=== PATIENT | female | born 1970 | race Caucasian/White ===

== ENCOUNTER 2017-03-14 21:27 | Emergency (ER) | payer MEDICARE, MEDICAID ==
[~2017-03-14] VITALS: Ht 177.8 cm; Wt 95.3 kg
[~2017-03-14 21:27] MED LIST: BACL20TA PO; BUPR150T27 PO; CLIN300C53 PO; ESTR1TAB19 PO; FENT1PAT7 TOP; FLUT16SP2 BOTHNARES; GABA600T2 PO; GABA800T2 PO; HYDR-3972 PO; LEVO750T21 PO; LORA10TA7 PO; LURA120T PO; MULT-342 PO; OMEP20CA10 PO; SERT100T10 PO; SPIR100T PO
[2017-03-14 21:55] LABS: CLARITY,URINE Clear (Clear); COLOR,URINE Yellow (Yellow); GLUCOSE, URINE Negative (Neg); KETONES,URINE Negative (Neg); LEUKOCYTE ESTERASE ,URINE Trace (Neg); NITRITES, URINE Negative (Neg); OCCULT BLOOD,URINE Small (Neg); PH,URINE 5.5 (4.8-8.0); PROTEIN,URINE Negative (Neg); UROBILINOGEN,URINE 0.2 E.U/dL (0.2-1.0)
[2017-03-14 22:03] LABS: URINE HCG NEGATIVE (NEG)
[2017-03-14 22:06] LABS: URINE AMPHETAMINE SCREEN NEGATIVE (Neg); URINE BARBITUATE SCREEN NEGATIVE (Neg); URINE BENZODIAZEPINES SCREEN NEGATIVE (Neg); URINE CANNABINOID SCREEN NEGATIVE (Neg); URINE COCAINE SCREEN NEGATIVE (Neg); URINE METHADONE SCREEN NEGATIVE (Neg); URINE OPIATE SCREEN NEGATIVE (Neg); URINE PHENCYCLIDINE SCREEN NEGATIVE (Neg)
[2017-03-14 22:07] LABS: UA COLLECTION TYPE CLN CATCH MIDSTREAM
[2017-03-14 22:14] LABS: BASOPHILS % (AUTO) 0.5 % (0-1); EOSINOPHILS # (AUTO) 0.2 X10'3 (0-0.9); EOSINOPHILS % (AUTO) 3.2 % (0-6); HEMATOCRIT 33.4 % (35.0-45.0); HEMOGLOBIN 11.4 g/dl (12.0-16.0); LYMPHOCYTES # (AUTO) 0.9 X10'3 (1.1-4.8); MEAN CORPUSCULAR HEMOGLOBIN 30.5 PG (27.0-31.0); MEAN CORPUSCULAR VOLUME 89.8 FL (78-98); MEAN PLATELET VOLUME 8.5 FL (7.4-10.4); MONOCYTES # (AUTO) 0.3 X10'3 (0-0.9); MONOCYTES % (AUTO) 5.1 % (2-12); NEUTROPHILS # (AUTO) 4.7 X10'3 (1.8-7.7); NEUTROPHILS % (AUTO) 76.2 % (42-75); PLATELET COUNT 167 X10'3 (140-440); RED BLOOD COUNT 3.72 X10'6 (4.20-5.60); RED CELL DISTRIBUTION WIDTH 13.6 % (11.5-14.5); WHITE BLOOD COUNT 6.2 X10'3 (4.5-11.0)
[2017-03-14 22:21] LABS: WBC,URINE 0-4 /HPF (0-4)
[2017-03-14 22:22] LABS: BACTERIA,URINE NONE SEEN /HPF (Neg); MUCUS STRANDS NONE SEEN /LPF (Neg); SQUAMOUS EPITHELIAL CELL,UR FEW /LPF (FEW)
[2017-03-14 22:28] LABS: ALANINE AMINOTRANSFERASE 23 U/L (12-78); ALBUMIN 3.7 G/DL (3.4-5.0); ALBUMIN/GLOBULIN RATIO 1.1 (1.1-1.5); ALKALINE PHOSPHATASE 52 IU/L (46-116); ANION GAP 13 (8-16); ASPARTATE AMINO TRANSFERASE 11 U/L (10-37); BILIRUBIN,TOTAL 0.2 MG/DL (0.1-1.0); BLOOD UREA NITROGEN 15 MG/DL (7-18); BUN/CREATININE RATIO 10.4 (6.6-38.0); CALCIUM 8.6 MG/DL (8.5-10.1); CHLORIDE 108 MMOL/L (99-107); CREATININE 1.44 MG/DL (0.40-0.90); GLUCOSE 170 MG/DL (70-104); POTASSIUM 3.7 MMOL/L (3.5-5.1); SODIUM 143 MMOL/L (135-145); TOTAL CARBON DIOXIDE 22.4 MMOL/L (24-32); TOTAL PROTEIN 7.2 G/DL (6.4-8.2); eGFR 39 ML/MIN
[2017-03-14 22:36] LABS: ETHANOL < 0.010 GM/DL (0.0-0.010)
[2017-03-14] MEDS ORDERED: MULT-38 PO (23:38)
[2017-03-14] MEDS ORDERED: BACL20TA PO (23:38)
[2017-03-14] MEDS ORDERED: LORA10TA7 PO (23:38)
[2017-03-14] MEDS ORDERED: SERT25TA PO (23:38)
[2017-03-14] MEDS ORDERED: IBUP-1984 PO (23:38)
[2017-03-14] MEDS ORDERED: ONDA8TAB6 PO (23:38)
[2017-03-14] MEDS ORDERED: METO-467 PO (23:38)
[2017-03-14] MEDS ORDERED: BENZ0.5T3 PO (23:38)
[2017-03-14] MEDS ORDERED: GABA600T2 PO (23:38)
[2017-03-14] MEDS ORDERED: EST1T PO (23:38)
[2017-03-14] MEDS ORDERED: LURA120T PO (23:38)
[2017-03-14] MEDS ORDERED: HYDR-565 PO (23:38)
[2017-03-14] MEDS ORDERED: LURA20TA PO (23:38)
[2017-03-14] MEDS ORDERED: GABA800T2 PO (23:38)
[2017-03-15 01:02] VITALS: BP 142/97
== END 2017-03-15 00:25 | disposition home or self-care (01) ==
LOC: ER 21:29
DX: R45.851 Suicidal ideations (principal); N28.9 Disorder of kidney and ureter, unspecified; D64.9 Anemia, unspecified; I10 Essential (primary) hypertension; G89.29 Other chronic pain; I49.9 Cardiac arrhythmia, unspecified; F20.9 Schizophrenia, unspecified; F41.9 Anxiety disorder, unspecified; F31.9 Bipolar disorder, unspecified; Z86.711 Personal history of pulmonary embolism; Z87.442 Personal history of urinary calculi; Z59.0 Homelessness; Z79.899 Other long term (current) drug therapy; Z88.2 Allergy status to sulfonamides; Z88.0 Allergy status to penicillin; Z88.8 Allergy status to other drugs, medicaments and biological substances; Z88.5 Allergy status to narcotic agent
CPT/HCPCS: 36415; 80053; 80305; 80320; 81001; 81025; 84443; 85025; 99284

== ENCOUNTER 2017-03-14 23:10 | Inpatient (IN) | payer MEDICARE, MEDICAID ==
[~2017-03-14] VITALS: Ht 177.8 cm; Wt 94.0 kg
[2017-03-14] MEDS ORDERED: IBUP-1984 PO (23:38)
[2017-03-14] MEDS ORDERED: BENZ0.5T3 PO (23:38)
[2017-03-14] MEDS ORDERED: ONDA8TAB6 PO (23:38)
[2017-03-14] MEDS ORDERED: LURA120T PO (23:38)
[2017-03-14] MEDS ORDERED: MULT-38 PO (23:38)
[2017-03-14] MEDS ORDERED: METO-467 PO (23:38)
[2017-03-14] MEDS ORDERED: GABA600T2 PO (23:38)
[2017-03-14] MEDS ORDERED: LORA10TA7 PO (23:38)
[2017-03-14] MEDS ORDERED: HYDR-565 PO (23:38)
[2017-03-14] MEDS ORDERED: BACL20TA PO (23:38)
[2017-03-14] MEDS ORDERED: EST1T PO (23:38)
[2017-03-14] MEDS ORDERED: SERT25TA PO (23:38)
[2017-03-14] MEDS ORDERED: LURA20TA PO (23:38)
[2017-03-14] MEDS ORDERED: GABA800T2 PO (23:38)
[2017-03-15] MEDS ORDERED: magnesium hydroxide 30ml (MOM) UD suspension PO PRN (00:25)
[2017-03-15] MEDS ORDERED: mag hydrox/Alum hydrox/simeth 30ml oral suspension PO PRN (00:25)
[2017-03-15 00:51] VITALS: BP 107/78
[2017-03-15] MEDS: acetaminophen 325mg tablet PO PRN ×2 (01:27→08:56)
[2017-03-15] MEDS: baclofen 10mg tablet PO SCH ×4 (02:03→20:29)
[2017-03-15 07:36] VITALS: BP 143/95
[2017-03-15] MEDS ORDERED: FENTANYL 25 MCG TOP SCH (17:10)
[2017-03-15 19:00] VITALS: BP 148/89
[2017-03-15] MEDS: gabapentin 300mg capsule PO SCH ×2 (20:00→20:30)
[2017-03-15] MEDS: HYDROcodone/acetaminophen 10/325mg tab PO SCH (20:29)
[2017-03-15] MEDS: gabapentin 400mg capsule PO SCH (20:30)
[2017-03-15] MEDS: ibuprofen tablet 400 MG TABLET PO SCH (20:30)
[2017-03-15] MEDS: ondansetron 4mg rapidly disintigrating tab PO SCH (20:31)
[2017-03-15] MEDS: sertraline 50mg tablet PO SCH (20:31)
[2017-03-15] MEDS: benztropine 1mg tablet PO SCH (20:32)
[2017-03-15] MEDS: metoprolol tartrate 50mg tablet PO SCH (20:54)
[2017-03-15] MEDS: estradiol 1mg tablet PO SCH (20:55)
[2017-03-15] MEDS: spironolactone 25 MG tablet PO SCH (20:56)
[2017-03-15] MEDS ORDERED: lurasidone 20mg tablet PO SCH (21:00)
[2017-03-15] MEDS ORDERED: lurasidone 60mg tablet PO SCH (21:00)
[2017-03-16] MEDS: baclofen 10mg tablet PO SCH ×4 (02:00→20:32)
[2017-03-16] MEDS: HYDROcodone/acetaminophen 10/325mg tab PO SCH ×7 (04:00→23:54)
[2017-03-16 08:00] VITALS: BP 111/78
[2017-03-16] MEDS: fluticasone nasal spray 16GM bottle NS SCH (08:55)
[2017-03-16] MEDS: spironolactone 25 MG tablet PO SCH ×2 (08:56→20:32)
[2017-03-16] MEDS: loratadine 10mg tablet PO SCH (08:57)
[2017-03-16] MEDS: estradiol 1mg tablet PO SCH ×2 (08:58→20:32)
[2017-03-16] MEDS: metoprolol tartrate 50mg tablet PO SCH ×2 (08:58→20:32)
[2017-03-16] MEDS: gabapentin 300mg capsule PO SCH ×2 (08:59→20:32)
[2017-03-16] MEDS: ibuprofen tablet 400 MG TABLET PO SCH ×3 (08:59→20:33)
[2017-03-16] MEDS: pantoprazole 40mg Tablet.DR PO SCH (09:00)
[2017-03-16] MEDS: multivitamins, therapeutics tablet PO SCH (09:00)
[2017-03-16] MEDS: ondansetron 4mg rapidly disintigrating tab PO SCH ×3 (09:01→20:33)
[2017-03-16] MEDS: buPROPion SR 150mg tablet PO SCH (09:01)
[2017-03-16] MEDS: benztropine 1mg tablet PO SCH (20:33)
[2017-03-16] MEDS: gabapentin 400mg capsule PO SCH (20:33)
[2017-03-16] MEDS: sertraline 50mg tablet PO SCH (20:33)
[2017-03-16 20:49] VITALS: BP 121/82
[2017-03-16] MEDS ORDERED: lurasidone 60mg tablet PO SCH (22:00)
[2017-03-17] MEDS: baclofen 10mg tablet PO SCH (02:00)
[2017-03-17] MEDS: HYDROcodone/acetaminophen 10/325mg tab PO SCH (04:00)
[2017-03-17 08:00] VITALS: BP 120/75
[2017-03-17] MEDS ORDERED: LATUDA PO SCH (08:00)
[2017-03-17] MEDS: loratadine 10mg tablet PO SCH (08:00)
[2017-03-17] MEDS: spironolactone 25 MG tablet PO SCH ×2 (09:50→19:42)
[2017-03-17] MEDS: fluticasone nasal spray 16GM bottle NS SCH (09:50)
[2017-03-17] MEDS: estradiol 1mg tablet PO SCH ×2 (09:51→19:41)
[2017-03-17] MEDS: gabapentin 300mg capsule PO SCH ×2 (09:53→19:41)
[2017-03-17] MEDS: metoprolol tartrate 50mg tablet PO SCH ×2 (09:53→19:41)
[2017-03-17] MEDS: buPROPion SR 150mg tablet PO SCH (09:54)
[2017-03-17] MEDS: fentaNYL 25MCG/hour patch.TD72 TD SCH (09:55)
[2017-03-17] MEDS: baclofen 10mg tablet PO PRN ×2 (09:56→20:59)
[2017-03-17] MEDS: multivitamins, therapeutics tablet PO SCH (10:10)
[2017-03-17] MEDS: pantoprazole 40mg Tablet.DR PO SCH (13:40)
[2017-03-17] MEDS: HYDROcodone/acetaminophen 10/325mg tab PO PRN ×2 (13:42→19:44)
[2017-03-17] MEDS ORDERED: lurasidone 20mg tablet PO SCH (18:00)
[2017-03-17] MEDS ORDERED: lurasidone 60mg tablet PO SCH (18:00)
[2017-03-17 19:20] VITALS: BP 136/76
[2017-03-17] MEDS: gabapentin 400mg capsule PO SCH (20:58)
[2017-03-17] MEDS: sertraline 50mg tablet PO SCH (20:59)
[2017-03-17] MEDS: benztropine 1mg tablet PO SCH (20:59)
[2017-03-17] MEDS: lurasidone 60mg tablet PO SCH (21:04)
[2017-03-17] MEDS: ibuprofen tablet 400 MG TABLET PO PRN (21:07)
[2017-03-18] MEDS: HYDROcodone/acetaminophen 10/325mg tab PO PRN ×4 (01:50→20:50)
[2017-03-18 07:44] VITALS: BP 110/66
[2017-03-18] MEDS: lurasidone 20mg tablet PO SCH (08:00)
[2017-03-18] MEDS: fluticasone nasal spray 16GM bottle NS SCH (08:53)
[2017-03-18] MEDS: spironolactone 25 MG tablet PO SCH ×2 (08:54→20:39)
[2017-03-18] MEDS: buPROPion SR 150mg tablet PO SCH (08:55)
[2017-03-18] MEDS: metoprolol tartrate 50mg tablet PO SCH ×2 (08:55→20:40)
[2017-03-18] MEDS: estradiol 1mg tablet PO SCH ×2 (08:56→20:40)
[2017-03-18] MEDS: gabapentin 300mg capsule PO SCH ×2 (08:57→20:40)
[2017-03-18] MEDS: multivitamins, therapeutics tablet PO SCH (08:57)
[2017-03-18] MEDS: pantoprazole 40mg Tablet.DR PO SCH (08:58)
[2017-03-18] MEDS: loratadine 10mg tablet PO SCH (08:58)
[2017-03-18] MEDS: baclofen 10mg tablet PO PRN ×2 (09:02→20:50)
[2017-03-18 09:13] LABS: CHOL/HDL RATIO 5.4 (0.00-4.99); CHOLESTEROL 145 MG/DL (0-200); HDL CHOLESTEROL 27 MG/DL (35-60); LDL CHOLESTEROL 82 MG/DL (50-100); TRIGLYCERIDES 367 MG/DL (20-135)
[2017-03-18 09:20] LABS: HEMOGLOBIN A1C 5.1 % (4.5-6.2)
[2017-03-18] MEDS ORDERED: traZODone 50mg tablet PO PRN (10:15)
[2017-03-18 19:36] VITALS: BP 109/75
[2017-03-18] MEDS: lurasidone 60mg tablet PO SCH (20:41)
[2017-03-18] MEDS: benztropine 1mg tablet PO SCH (20:41)
[2017-03-18] MEDS: gabapentin 400mg capsule PO SCH (20:41)
[2017-03-18] MEDS: sertraline 50mg tablet PO SCH (20:42)
[2017-03-19 07:34] VITALS: BP 103/52
[2017-03-19] MEDS: fluticasone nasal spray 16GM bottle NS SCH (08:00)
[2017-03-19] MEDS: pantoprazole 40mg Tablet.DR PO SCH (08:23)
[2017-03-19] MEDS: metoprolol tartrate 50mg tablet PO SCH ×2 (08:23→20:45)
[2017-03-19] MEDS: gabapentin 300mg capsule PO SCH ×2 (08:23→20:00)
[2017-03-19] MEDS: lurasidone 20mg tablet PO SCH (08:24)
[2017-03-19] MEDS: loratadine 10mg tablet PO SCH (08:24)
[2017-03-19] MEDS: multivitamins, therapeutics tablet PO SCH (08:24)
[2017-03-19] MEDS: buPROPion SR 150mg tablet PO SCH (08:24)
[2017-03-19] MEDS: estradiol 1mg tablet PO SCH ×2 (08:26→20:41)
[2017-03-19] MEDS: spironolactone 25 MG tablet PO SCH ×2 (08:27→20:40)
[2017-03-19] MEDS: HYDROcodone/acetaminophen 10/325mg tab PO PRN ×3 (08:36→22:21)
[2017-03-19] MEDS: baclofen 10mg tablet PO PRN (14:04)
[2017-03-19] MEDS: ibuprofen tablet 400 MG TABLET PO PRN (14:05)
[2017-03-19 19:00] VITALS: BP 104/58
[2017-03-19] MEDS: sertraline 50mg tablet PO SCH (20:43)
[2017-03-19] MEDS: gabapentin 400mg capsule PO SCH (20:44)
[2017-03-19] MEDS: lurasidone 60mg tablet PO SCH (20:44)
[2017-03-19] MEDS: benztropine 1mg tablet PO SCH (20:47)
[2017-03-20 07:38] VITALS: BP 100/70
[2017-03-20] MEDS: fluticasone nasal spray 16GM bottle NS SCH (08:55)
[2017-03-20] MEDS: loratadine 10mg tablet PO SCH (08:57)
[2017-03-20] MEDS: spironolactone 25 MG tablet PO SCH ×2 (08:57→21:28)
[2017-03-20] MEDS: estradiol 1mg tablet PO SCH ×2 (08:58→21:28)
[2017-03-20] MEDS: metoprolol tartrate 50mg tablet PO SCH ×2 (08:58→21:28)
[2017-03-20] MEDS: lurasidone 20mg tablet PO SCH ×2 (08:58→21:27)
[2017-03-20] MEDS: multivitamins, therapeutics tablet PO SCH (08:59)
[2017-03-20] MEDS: buPROPion SR 150mg tablet PO SCH (08:59)
[2017-03-20] MEDS: pantoprazole 40mg Tablet.DR PO SCH (08:59)
[2017-03-20] MEDS: gabapentin 300mg capsule PO SCH ×2 (09:14→20:00)
[2017-03-20] MEDS: baclofen 10mg tablet PO PRN ×2 (09:15→17:58)
[2017-03-20] MEDS: HYDROcodone/acetaminophen 10/325mg tab PO PRN ×3 (09:17→21:26)
[2017-03-20] MEDS: fentaNYL 25MCG/hour patch.TD72 TD SCH (09:34)
[2017-03-20] MEDS: ibuprofen tablet 400 MG TABLET PO PRN (17:58)
[2017-03-20 20:00] VITALS: BP 105/69
[2017-03-20] MEDS: sertraline 50mg tablet PO SCH (21:26)
[2017-03-20] MEDS: gabapentin 400mg capsule PO SCH (21:27)
[2017-03-20] MEDS: lurasidone 60mg tablet PO SCH (21:27)
[2017-03-20] MEDS: benztropine 1mg tablet PO SCH (21:29)
[2017-03-21 07:12] VITALS: BP 109/67
[2017-03-21] MEDS ORDERED: gabapentin 400mg capsule PO SCH (08:00)
[2017-03-21] MEDS: fluticasone nasal spray 16GM bottle NS SCH (08:29)
[2017-03-21] MEDS: multivitamins, therapeutics tablet PO SCH (08:30)
[2017-03-21] MEDS: buPROPion SR 150mg tablet PO SCH (08:30)
[2017-03-21] MEDS: pantoprazole 40mg Tablet.DR PO SCH (08:30)
[2017-03-21] MEDS: spironolactone 25 MG tablet PO SCH ×2 (08:30→20:31)
[2017-03-21] MEDS: estradiol 1mg tablet PO SCH ×2 (08:31→20:32)
[2017-03-21] MEDS: metoprolol tartrate 50mg tablet PO SCH ×2 (08:31→20:33)
[2017-03-21] MEDS: HYDROcodone/acetaminophen 10/325mg tab PO PRN ×3 (08:36→20:35)
[2017-03-21] MEDS: loratadine 10mg tablet PO SCH (08:36)
[2017-03-21] MEDS: gabapentin 300mg capsule PO SCH ×2 (09:39→12:59)
[2017-03-21 19:00] VITALS: BP 116/74
[2017-03-21] MEDS: lurasidone 60mg tablet PO SCH (20:33)
[2017-03-21] MEDS: baclofen 10mg tablet PO PRN (20:34)
[2017-03-21] MEDS: sertraline 50mg tablet PO SCH (20:34)
[2017-03-21] MEDS: gabapentin 400mg capsule PO SCH (20:34)
[2017-03-21] MEDS: benztropine 1mg tablet PO SCH (21:11)
[2017-03-22] MEDS: HYDROcodone/acetaminophen 10/325mg tab PO PRN ×2 (05:01→19:31)
[2017-03-22 08:00] VITALS: BP 108/76
[2017-03-22] MEDS: estradiol 1mg tablet PO SCH ×2 (08:32→20:54)
[2017-03-22] MEDS: lurasidone 20mg tablet PO SCH ×2 (08:32→20:55)
[2017-03-22] MEDS: gabapentin 300mg capsule PO SCH ×2 (08:32→13:04)
[2017-03-22] MEDS: buPROPion SR 150mg tablet PO SCH (08:33)
[2017-03-22] MEDS: loratadine 10mg tablet PO SCH (08:33)
[2017-03-22] MEDS: pantoprazole 40mg Tablet.DR PO SCH (08:33)
[2017-03-22] MEDS: multivitamins, therapeutics tablet PO SCH (08:33)
[2017-03-22] MEDS: metoprolol tartrate 50mg tablet PO SCH ×2 (08:33→20:55)
[2017-03-22] MEDS: spironolactone 25 MG tablet PO SCH (08:33)
[2017-03-22] MEDS: fluticasone nasal spray 16GM bottle NS SCH (08:34)
[2017-03-22] MEDS ORDERED: spironolactone 50 MG tablet PO SCH (19:22)
[2017-03-22 19:58] VITALS: BP 123/81
[2017-03-22] MEDS ORDERED: spironolactone 25 MG tablet PO SCH ×2 (20:43→21:14)
[2017-03-22] MEDS: lurasidone 60mg tablet PO SCH (20:55)
[2017-03-22] MEDS: baclofen 10mg tablet PO PRN (20:55)
[2017-03-22] MEDS: gabapentin 400mg capsule PO SCH (20:55)
[2017-03-22] MEDS: sertraline 50mg tablet PO SCH (20:55)
[2017-03-22] MEDS: benztropine 1mg tablet PO SCH (20:56)
[2017-03-23 07:05] VITALS: BP 116/68
[2017-03-23] MEDS: fluticasone nasal spray 16GM bottle NS SCH ×2 (08:00→08:43)
[2017-03-23 08:40] VITALS: BP 119/86
[2017-03-23] MEDS: gabapentin 300mg capsule PO SCH ×2 (08:41→13:15)
[2017-03-23] MEDS: multivitamins, therapeutics tablet PO SCH (08:41)
[2017-03-23] MEDS: metoprolol tartrate 50mg tablet PO SCH ×2 (08:41→21:29)
[2017-03-23] MEDS: pantoprazole 40mg Tablet.DR PO SCH (08:41)
[2017-03-23] MEDS: loratadine 10mg tablet PO SCH (08:41)
[2017-03-23] MEDS: lurasidone 20mg tablet PO SCH ×2 (08:41→21:18)
[2017-03-23] MEDS: estradiol 1mg tablet PO SCH ×2 (08:41→21:22)
[2017-03-23] MEDS: buPROPion SR 150mg tablet PO SCH (08:43)
[2017-03-23] MEDS: HYDROcodone/acetaminophen 10/325mg tab PO PRN ×2 (09:03→15:18)
[2017-03-23] MEDS: spironolactone 50 MG tablet PO SCH ×2 (09:04→21:28)
[2017-03-23] MEDS: fentaNYL 25MCG/hour patch.TD72 TD SCH (10:11)
[2017-03-23 19:50] VITALS: BP 119/80
[2017-03-23] MEDS: benztropine 1mg tablet PO SCH (21:18)
[2017-03-23] MEDS: lurasidone 60mg tablet PO SCH (21:18)
[2017-03-23] MEDS: ondansetron 4mg rapidly disintigrating tab PO PRN (21:19)
[2017-03-23] MEDS: gabapentin 400mg capsule PO SCH (21:21)
[2017-03-23] MEDS: sertraline 50mg tablet PO SCH (21:23)
[2017-03-24 08:00] VITALS: BP 132/90
[2017-03-24] MEDS: fluticasone nasal spray 16GM bottle NS SCH (08:00)
[2017-03-24] MEDS: buPROPion SR 150mg tablet PO SCH ×2 (08:05→13:16)
[2017-03-24] MEDS: gabapentin 300mg capsule PO SCH ×2 (08:06→13:16)
[2017-03-24] MEDS: loratadine 10mg tablet PO SCH (08:06)
[2017-03-24] MEDS: metoprolol tartrate 50mg tablet PO SCH ×2 (08:06→20:12)
[2017-03-24] MEDS: pantoprazole 40mg Tablet.DR PO SCH (08:06)
[2017-03-24] MEDS: HYDROcodone/acetaminophen 10/325mg tab PO PRN ×3 (08:06→23:46)
[2017-03-24] MEDS: spironolactone 50 MG tablet PO SCH ×2 (08:06→20:12)
[2017-03-24] MEDS: lurasidone 20mg tablet PO SCH ×2 (08:06→18:19)
[2017-03-24] MEDS: estradiol 1mg tablet PO SCH ×2 (08:06→20:12)
[2017-03-24] MEDS: multivitamins, therapeutics tablet PO SCH (08:07)
[2017-03-24] MEDS: lurasidone 60mg tablet PO SCH (18:19)
[2017-03-24 19:34] VITALS: BP 109/80
[2017-03-24] MEDS: gabapentin 400mg capsule PO SCH (20:11)
[2017-03-24] MEDS: sertraline 50mg tablet PO SCH (20:11)
[2017-03-24] MEDS: benztropine 1mg tablet PO SCH (20:11)
[2017-03-24] MEDS: baclofen 10mg tablet PO PRN (23:47)
[2017-03-25 07:27] VITALS: BP 124/70
[2017-03-25] MEDS: HYDROcodone/acetaminophen 10/325mg tab PO PRN (09:02)
[2017-03-25] MEDS: lurasidone 20mg tablet PO SCH ×2 (09:03→20:44)
[2017-03-25] MEDS: loratadine 10mg tablet PO SCH (09:03)
[2017-03-25] MEDS: spironolactone 50 MG tablet PO SCH ×2 (09:03→20:44)
[2017-03-25] MEDS: estradiol 1mg tablet PO SCH ×2 (09:03→20:43)
[2017-03-25] MEDS: gabapentin 300mg capsule PO SCH ×2 (09:04→13:00)
[2017-03-25] MEDS: metoprolol tartrate 50mg tablet PO SCH ×2 (09:04→20:45)
[2017-03-25] MEDS: buPROPion SR 150mg tablet PO SCH ×2 (09:04→13:00)
[2017-03-25] MEDS: pantoprazole 40mg Tablet.DR PO SCH (09:05)
[2017-03-25] MEDS: multivitamins, therapeutics tablet PO SCH (09:05)
[2017-03-25] MEDS: fluticasone nasal spray 16GM bottle NS SCH (09:05)
[2017-03-25 20:04] VITALS: BP 118/83
[2017-03-25] MEDS: benztropine 1mg tablet PO SCH (20:42)
[2017-03-25] MEDS: sertraline 50mg tablet PO SCH (20:45)
[2017-03-25] MEDS: lurasidone 60mg tablet PO SCH (20:45)
[2017-03-25] MEDS: gabapentin 400mg capsule PO SCH (21:00)
[2017-03-26 07:12] VITALS: BP 98/62
[2017-03-26] MEDS: metoprolol tartrate 50mg tablet PO SCH (08:00)
[2017-03-26] MEDS: fluticasone nasal spray 16GM bottle NS SCH (08:29)
[2017-03-26] MEDS: buPROPion SR 150mg tablet PO SCH ×2 (08:30→13:07)
[2017-03-26] MEDS: estradiol 1mg tablet PO SCH (08:30)
[2017-03-26] MEDS: lurasidone 20mg tablet PO SCH (08:31)
[2017-03-26] MEDS: multivitamins, therapeutics tablet PO SCH (08:31)
[2017-03-26] MEDS: loratadine 10mg tablet PO SCH (08:31)
[2017-03-26] MEDS: spironolactone 50 MG tablet PO SCH (08:32)
[2017-03-26] MEDS: gabapentin 300mg capsule PO SCH ×2 (08:32→12:30)
[2017-03-26] MEDS: pantoprazole 40mg Tablet.DR PO SCH (08:32)
[2017-03-26] MEDS: HYDROcodone/acetaminophen 10/325mg tab PO PRN (09:36)
[2017-03-26] MEDS: ondansetron 4mg rapidly disintigrating tab PO PRN (09:36)
[2017-03-26] MEDS: fentaNYL 25MCG/hour patch.TD72 TD SCH (11:22)
[2017-03-26] MEDS ORDERED: SERT100T10 PO (12:36)
[2017-03-26] MEDS ORDERED: LURA20TA PO (12:36)
[2017-03-26] MEDS ORDERED: LURA120T PO (12:36)
[2017-03-26] MEDS ORDERED: BENZ1TAB7 PO (12:36)
[2017-03-26] MEDS ORDERED: ZOL50T PO (12:36)
[2017-03-26] MEDS ORDERED: TRAZ-143 PO (12:36)
[2017-03-26] MEDS ORDERED: BUPR-84 PO ×2 (12:36)
== END 2017-03-26 14:30 | disposition home or self-care (01) | DRG 883 ==
LOC: ADULT MH 23:10
PROVIDERS: ADMIT Psychiatry & Neurology Psychiatry; ATTEND Psychiatry & Neurology Psychiatry
DX: F60.3 Borderline personality disorder (principal); F20.9 Schizophrenia, unspecified; R45.851 Suicidal ideations; F64.9 Gender identity disorder, unspecified; G89.29 Other chronic pain; I10 Essential (primary) hypertension; F32.9 Major depressive disorder, single episode, unspecified; F41.9 Anxiety disorder, unspecified; I49.9 Cardiac arrhythmia, unspecified; Z88.2 Allergy status to sulfonamides; Z88.8 Allergy status to other drugs, medicaments and biological substances; Z88.0 Allergy status to penicillin; Z86.711 Personal history of pulmonary embolism; Z87.442 Personal history of urinary calculi; Z87.891 Personal history of nicotine dependence; Z82.49 Family history of ischemic heart disease and other diseases of the circulatory system; Z83.3 Family history of diabetes mellitus
CPT/HCPCS: 36415; 80061; 83036; 87070

== ENCOUNTER 2017-07-16 14:32 | Emergency (ER) | payer MEDICARE, MEDICAID ==
[~2017-07-16] VITALS: Ht 177.8 cm; Wt 92.5 kg
[~2017-07-16 14:32] MED LIST changes: +BENZ1TAB7 PO; +BUPR-84 PO; -BUPR150T27 PO; -CLIN300C53 PO; +EST1T PO; -ESTR1TAB19 PO; -HYDR-3972 PO; +HYDR-565 PO; -LEVO750T21 PO; +LURA20TA PO; +METO-467 PO; -MULT-342 PO; +MULT-38 PO; +TRAZ-143 PO; +ZOL50T PO
[2017-07-16 14:54] VITALS: BP 119/75
[2017-07-16 15:32] LABS: BASOPHILS # (AUTO) 0.1 X10'3 (0-0.2); BASOPHILS % (AUTO) 0.9 % (0-1); EOSINOPHILS # (AUTO) 0.2 X10'3 (0-0.9); EOSINOPHILS % (AUTO) 2.6 % (0-6); HEMATOCRIT 35.1 % (35.0-45.0); HEMOGLOBIN 12.1 g/dl (12.0-16.0); LYMPHOCYTES # (AUTO) 1.1 X10'3 (1.1-4.8); LYMPHOCYTES % (AUTO) 12.8 % (21-51); MEAN CORPUSCULAR HEMOGLOBIN 30.4 PG (27.0-31.0); MEAN CORPUSCULAR HGB CONC 34.6 % (33.0-36.5); MEAN CORPUSCULAR VOLUME 87.8 FL (78-98); MEAN PLATELET VOLUME 8.2 FL (7.4-10.4); MONOCYTES # (AUTO) 0.5 X10'3 (0-0.9); MONOCYTES % (AUTO) 5.5 % (2-12); NEUTROPHILS # (AUTO) 6.5 X10'3 (1.8-7.7); NEUTROPHILS % (AUTO) 78.2 % (42-75); PLATELET COUNT 184 X10'3 (140-440); RED CELL DISTRIBUTION WIDTH 14.4 % (11.5-14.5); WHITE BLOOD COUNT 8.4 X10'3 (4.5-11.0)
[2017-07-16 15:48] LABS: ALANINE AMINOTRANSFERASE 16 U/L (12-78); ALBUMIN 3.9 G/DL (3.4-5.0); ALBUMIN/GLOBULIN RATIO 1.1 (1.1-1.5); ALKALINE PHOSPHATASE 52 IU/L (46-116); ANION GAP 10 (8-16); ASPARTATE AMINO TRANSFERASE 9 U/L (10-37); BILIRUBIN,TOTAL 0.3 MG/DL (0.1-1.0); BLOOD UREA NITROGEN 22 MG/DL (7-18); BUN/CREATININE RATIO 16.2 (6.6-38.0); CALCIUM 9.3 MG/DL (8.5-10.1); CHLORIDE 105 MMOL/L (99-107); CREATININE 1.36 MG/DL (0.40-0.90); GLUCOSE 90 MG/DL (70-104); POTASSIUM 4.4 MMOL/L (3.5-5.1); SODIUM 140 MMOL/L (135-145); TOTAL CARBON DIOXIDE 24.6 MMOL/L (24-32); TOTAL PROTEIN 7.4 G/DL (6.4-8.2); eGFR 42 ML/MIN
[2017-07-16 15:50] LABS: URINE HCG NEGATIVE (NEG)
[2017-07-16 15:52] LABS: CLARITY,URINE SLIGHTLY CLOUDY (Clear); COLOR,URINE YELLOW (Yellow); GLUCOSE, URINE NEGATIVE (Neg); KETONES,URINE NEGATIVE (Neg); LEUKOCYTE ESTERASE ,URINE NEGATIVE (Neg); NITRITES, URINE NEGATIVE (Neg); OCCULT BLOOD,URINE TRACE-INTACT (Neg); PROTEIN,URINE NEGATIVE (Neg); UROBILINOGEN,URINE 0.2 E.U/dL (0.2-1.0)
[2017-07-16 15:56] LABS: URINE AMPHETAMINE SCREEN NEGATIVE (Neg); URINE BARBITUATE SCREEN NEGATIVE (Neg); URINE BENZODIAZEPINES SCREEN NEGATIVE (Neg); URINE CANNABINOID SCREEN NEGATIVE (Neg); URINE COCAINE SCREEN NEGATIVE (Neg); URINE METHADONE SCREEN NEGATIVE (Neg); URINE OPIATE SCREEN NEGATIVE (Neg); URINE PHENCYCLIDINE SCREEN NEGATIVE (Neg)
[2017-07-16 15:56] LABS: ETHANOL < 0.010 GM/DL (0.0-0.010)
[2017-07-16 15:59] LABS: ACETAMINOPHEN < 2.0 UG/ML (10-30)
[2017-07-16 16:05] LABS: UA COLLECTION TYPE CLN CATCH MIDSTREAM
[2017-07-16 16:06] LABS: BACTERIA,URINE 1+ /HPF (Neg)
[2017-07-16 16:07] LABS: MUCUS STRANDS FEW /LPF (Neg); SQUAMOUS EPITHELIAL CELL,UR MANY /LPF (FEW)
[2017-07-16 16:08] LABS: RBC,URINE 0-2 /HPF (0-2)
[2017-07-16] MEDS ORDERED: TRAM1TAB36 PO (17:52)
[2017-07-16] MEDS ORDERED: BUPR300T54 PO (17:52)
[2017-07-16] MEDS ORDERED: CYAN-19 PO (17:52)
[2017-07-16] MEDS ORDERED: LURA40TA3 PO (17:52)
[2017-07-16] MEDS ORDERED: LURA120T PO (17:52)
[2017-07-16] MEDS ORDERED: IBUP-1986 PO (17:52)
[2017-07-16] MEDS ORDERED: GABA600T2 PO (17:52)
[2017-07-16] MEDS ORDERED: BUPR150T6 PO (17:52)
== END 2017-07-16 16:14 ==
LOC: ER 14:33
DX: F31.9 Bipolar disorder, unspecified (principal); F41.9 Anxiety disorder, unspecified; R45.851 Suicidal ideations; I10 Essential (primary) hypertension; G89.29 Other chronic pain; I49.9 Cardiac arrhythmia, unspecified; Z59.0 Homelessness; Z98.890 Other specified postprocedural states; Z87.442 Personal history of urinary calculi; Z88.8 Allergy status to other drugs, medicaments and biological substances; Z88.0 Allergy status to penicillin; Z88.2 Allergy status to sulfonamides; Z79.899 Other long term (current) drug therapy
CPT/HCPCS: 36415; 80053; 80305; 80320; 80329; 81001; 81025; 84443; 85025; 99285

== ENCOUNTER 2018-03-04 22:19 | Emergency (ER) | payer MEDICARE, MEDICAID ==
[~2018-03-04] VITALS: Ht 177.8 cm; Wt 88.6 kg
[~2018-03-04 22:19] MED LIST changes: +ATOR20TA66 PO; +BUPR75TA12 PO; +CYAN-19 PO; -EST1T PO; +ESTR40VI4 IM; -FENT1PAT7 TOP; -FLUT16SP2 BOTHNARES; -GABA600T2 PO; -GABA800T2 PO; +GABA800T3 PO; +HYDR-3686 PO; -HYDR-565 PO; +IBUP-1986 PO; -LURA120T PO; -LURA20TA PO; +LURA60TA2 PO; +MIRT30TA8 PO; +TRAM1TAB7 PO; -TRAZ-143 PO; +TRAZ-218 PO; -ZOL50T PO
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
[2018-03-04] MEDS ORDERED: ONDA8TAB6 PO (23:30)
[2018-03-04] MEDS ORDERED: LURA60TA2 PO (23:30)
[2018-03-04] MEDS ORDERED: SPIR100T PO (23:30)
[2018-03-04] MEDS ORDERED: GABA800T3 PO (23:30)
[2018-03-04] MEDS ORDERED: SERT25TA PO (23:30)
[2018-03-04] MEDS ORDERED: BUPR-94 PO (23:30)
[2018-03-04] MEDS ORDERED: ALBU8HFA PO (23:35)
--- NOTE | 2018-03-04 23:54 | NUR ---
telepsyche consult initiated
[2018-03-05 00:36] LABS: BASOPHILS % (AUTO) 0.4 % (0-1); EOSINOPHILS # (AUTO) 0.1 X10'3 (0-0.9); EOSINOPHILS % (AUTO) 1.3 % (0-6); HEMATOCRIT 36.7 % (35.0-45.0); HEMOGLOBIN 12.5 g/dl (12.0-16.0); LYMPHOCYTES # (AUTO) 1.2 X10'3 (1.1-4.8); LYMPHOCYTES % (AUTO) 11.1 % (21-51); MEAN CORPUSCULAR HEMOGLOBIN 30.8 PG (27.0-31.0); MEAN CORPUSCULAR VOLUME 90.7 FL (78-98); MEAN PLATELET VOLUME 8.8 FL (7.4-10.4); MONOCYTES # (AUTO) 0.5 X10'3 (0-0.9); MONOCYTES % (AUTO) 5.1 % (2-12); NEUTROPHILS # (AUTO) 8.6 X10'3 (1.8-7.7); NEUTROPHILS % (AUTO) 82.1 % (42-75); PLATELET COUNT 166 X10'3 (140-440); RED BLOOD COUNT 4.05 X10'6 (4.20-5.60); RED CELL DISTRIBUTION WIDTH 13.3 % (11.5-14.5); WHITE BLOOD COUNT 10.4 X10'3 (4.5-11.0)
[2018-03-05 00:42] LABS: ALANINE AMINOTRANSFERASE 20 U/L (12-78); ALBUMIN 3.5 G/DL (3.4-5.0); ALKALINE PHOSPHATASE 50 IU/L (46-116); ANION GAP 11 (8-16); ASPARTATE AMINO TRANSFERASE 10 U/L (10-37); BILIRUBIN,TOTAL 0.1 MG/DL (0.1-1.0); BLOOD UREA NITROGEN 23 MG/DL (7-18); BUN/CREATININE RATIO 17.3 (6.6-38.0); CALCIUM 8.5 MG/DL (8.5-10.1); CHLORIDE 104 MMOL/L (99-107); CREATININE 1.33 MG/DL (0.40-0.90); GLUCOSE 166 MG/DL (70-104); SODIUM 137 MMOL/L (135-145); TOTAL CARBON DIOXIDE 21.9 MMOL/L (24-32); TOTAL PROTEIN 7.1 G/DL (6.4-8.2); eGFR 43 ML/MIN
--- NOTE | 2018-03-05 00:44 | NUR ---
Report to telepsychiatrist.
[2018-03-05] MEDS ORDERED: ondansetron 4mg rapidly disintigrating tab PO PRN (00:55)
[2018-03-05] MEDS ORDERED: baclofen 10mg tablet PO PRN (00:55)
[2018-03-05] MEDS ORDERED: ibuprofen tablet 400 MG TABLET PO PRN (00:55)
[2018-03-05] MEDS ORDERED: sertraline 50mg tablet PO SCH (01:00)
[2018-03-05] MEDS ORDERED: acetaminophen 325mg tablet PO PRN (01:00)
[2018-03-05] MEDS ORDERED: albuterol 2.5 MG/3 ML nebule NEB PRN (01:00)
[2018-03-05] MEDS ORDERED: lurasidone 60mg tablet PO SCH (01:00)
[2018-03-05] MEDS: gabapentin 400mg capsule PO SCH ×2 (01:03→08:04)
[2018-03-05] MEDS ORDERED: traMADol 50MG tablet PO PRN (01:10)
--- NOTE | 2018-03-05 01:25 | NUR ---
telepsych results discussed with provider.
--- NOTE | 2018-03-05 02:57 | NUR ---
The patient appears to be asleep
[2018-03-05 03:32] LABS: URINE AMPHETAMINE SCREEN NEGATIVE (Neg); URINE BARBITUATE SCREEN NEGATIVE (Neg); URINE BENZODIAZEPINES SCREEN NEGATIVE (Neg); URINE CANNABINOID SCREEN NEGATIVE (Neg); URINE COCAINE SCREEN NEGATIVE (Neg); URINE METHADONE SCREEN NEGATIVE (Neg); URINE OPIATE SCREEN NEGATIVE (Neg); URINE PHENCYCLIDINE SCREEN NEGATIVE (Neg)
[2018-03-05 05:41] VITALS: BP 108/79
--- NOTE | 2018-03-05 05:59 | NUR ---
The patient is resting on his bed. He is reporting racing thoughts. ER MD will be made aware on his AM rounds.
[2018-03-05] MEDS ORDERED: spironolactone 25 MG tablet PO SCH (08:00)
[2018-03-05] MEDS ORDERED: loratadine 10mg tablet PO SCH (08:00)
[2018-03-05] MEDS ORDERED: buPROPion SR 150mg tablet PO SCH (08:00)
== END 2018-03-05 08:45 | disposition home or self-care (01) ==
LOC: ER 22:21
DX: F32.9 Major depressive disorder, single episode, unspecified (principal); R45.851 Suicidal ideations; I10 Essential (primary) hypertension; G89.29 Other chronic pain; F41.9 Anxiety disorder, unspecified; Z59.0 Homelessness; Z88.0 Allergy status to penicillin; Z88.2 Allergy status to sulfonamides; Z88.5 Allergy status to narcotic agent; Z88.8 Allergy status to other drugs, medicaments and biological substances; Z79.899 Other long term (current) drug therapy
CPT/HCPCS: 36415; 80053; 80305; 80320; 85025; 99284

== ENCOUNTER → 2018-04-10 | Outpatient (CLI) | payer MEDICARE, MEDICAID ==
[~2018-04-10] MED LIST changes: +ALBU8HFA PO; -ATOR20TA66 PO; -BENZ1TAB7 PO; -BUPR-84 PO; +BUPR-94 PO; -BUPR75TA12 PO; -CYAN-19 PO; -ESTR40VI4 IM; +GABA800T11 PO; -GABA800T3 PO; -HYDR-3686 PO; -METO-467 PO; -MIRT30TA8 PO; -MULT-38 PO; -OMEP20CA10 PO; +ONDA8TAB6 PO; -SERT100T10 PO; +SERT25TA PO; -TRAZ-218 PO; +iohexol 300mg/ml 100ml inj. ONE
== END | disposition home or self-care (01) ==
LOC: 64 CT 10:32
PROVIDERS: ATTEND Family Medicine
DX: N20.0 Calculus of kidney (principal); N28.1 Cyst of kidney, acquired; N32.89 Other specified disorders of bladder; I10 Essential (primary) hypertension; R16.1 Splenomegaly, not elsewhere classified; R91.8 Other nonspecific abnormal finding of lung field; R31.9 Hematuria, unspecified; Z87.891 Personal history of nicotine dependence; Z98.890 Other specified postprocedural states; Z88.0 Allergy status to penicillin; Z88.2 Allergy status to sulfonamides; Z88.5 Allergy status to narcotic agent
CPT/HCPCS: 74178; Q9967

== ENCOUNTER 2018-05-02 16:39 | Emergency (ER) | payer MEDICARE, MEDICAID ==
[~2018-05-02] VITALS: Ht 177.8 cm; Wt 91.8 kg
[~2018-05-02 16:39] MED LIST changes: -iohexol 300mg/ml 100ml inj. ONE
[2018-05-02] MEDS ORDERED: iohexol 350MG/ML 100ml bottle IV ONE (17:10)
[2018-05-02 17:27] LABS: BASOPHILS # (AUTO) 0.1 X10'3 (0-0.2); BASOPHILS % (AUTO) 0.5 % (0-1); EOSINOPHILS # (AUTO) 0.2 X10'3 (0-0.9); EOSINOPHILS % (AUTO) 1.7 % (0-6); HEMATOCRIT 34.6 % (35.0-45.0); LYMPHOCYTES # (AUTO) 1.1 X10'3 (1.1-4.8); LYMPHOCYTES % (AUTO) 9.8 % (21-51); MEAN CORPUSCULAR HEMOGLOBIN 31.9 PG (27.0-31.0); MEAN CORPUSCULAR HGB CONC 34.8 g/dL (33.0-36.5); MEAN CORPUSCULAR VOLUME 91.6 FL (78-98); MONOCYTES # (AUTO) 0.6 X10'3 (0-0.9); MONOCYTES % (AUTO) 4.9 % (2-12); NEUTROPHILS # (AUTO) 9.5 X10'3 (1.8-7.7); NEUTROPHILS % (AUTO) 83.1 % (42-75); PLATELET COUNT 180 X10'3 (140-440); RED BLOOD COUNT 3.78 X10'6 (4.20-5.60); RED CELL DISTRIBUTION WIDTH 13.7 % (11.5-14.5); WHITE BLOOD COUNT 11.4 X10'3 (4.5-11.0)
[2018-05-02 17:43] LABS: ALBUMIN 3.7 G/DL (3.4-5.0); ALBUMIN/GLOBULIN RATIO 1.1 (1.1-1.5); ALKALINE PHOSPHATASE 51 IU/L (46-116); ANION GAP 9 (8-16); BILIRUBIN,TOTAL 0.2 MG/DL (0.1-1.0); BLOOD UREA NITROGEN 24 MG/DL (7-18); BUN/CREATININE RATIO 14.2 (6.6-38.0); CALCIUM 8.3 MG/DL (8.5-10.1); CHLORIDE 107 MMOL/L (99-107); CREATININE 1.69 MG/DL (0.40-0.90); PARTIAL THROMBOPLASTIN TIME 23 SECONDS (22-32); SODIUM 137 MMOL/L (135-145); TOTAL CARBON DIOXIDE 20.8 MMOL/L (24-32); eGFR 32 ML/MIN
[2018-05-02 17:53] LABS: ALANINE AMINOTRANSFERASE 16 U/L (12-78); ASPARTATE AMINO TRANSFERASE 10 U/L (10-37)
[2018-05-02 17:56] LABS: GLUCOSE 101 MG/DL (70-104); POTASSIUM 4.5 MMOL/L (3.5-5.1)
[2018-05-02] MEDS ORDERED: metoprolol tartrate 1mg/ml inj IV PRN (18:15)
[2018-05-02 18:39] VITALS: BP 117/71
== END 2018-05-02 18:43 | disposition home or self-care (01) ==
LOC: ER 16:39
DX: R00.2 Palpitations (principal); R00.0 Tachycardia, unspecified; R06.02 Shortness of breath; I10 Essential (primary) hypertension; G89.29 Other chronic pain; Z88.0 Allergy status to penicillin; Z88.2 Allergy status to sulfonamides; Z88.6 Allergy status to analgesic agent; Z88.8 Allergy status to other drugs, medicaments and biological substances; Z79.899 Other long term (current) drug therapy; Z87.442 Personal history of urinary calculi; Z95.1 Presence of aortocoronary bypass graft; Z59.0 Homelessness
CPT/HCPCS: 36415; 71045; 71275; 80053; 83880; 84484; 85025; 85610; 85730; 93005; 96374; 99284; Q9967; J3490

== ENCOUNTER 2018-05-31 16:48 | Observation (INO) | payer MEDICARE, MEDICAID ==
[~2018-05-31] VITALS: Ht 157.5 cm; Wt 95.4 kg
[2018-05-31] MEDS ORDERED: ondansetron/PF 4mg/2ml inj IV ONE (17:00)
[2018-05-31] MEDS ORDERED: normal saline 1000ML IV soln IVB ONE ×2 (17:00→18:30)
[2018-05-31] MEDS ORDERED: proCHLORperazine 10 MG/2 ml inj IV ONE (17:25)
[2018-05-31 17:46] LABS: LACTIC SEPSIS 1.5 MMOL/L (0.4-2.0)
[2018-05-31 17:52] LABS: ALANINE AMINOTRANSFERASE 16 U/L (12-78); ALBUMIN 4.3 G/DL (3.4-5.0); ALBUMIN/GLOBULIN RATIO 1.1 (1.1-1.5); ALKALINE PHOSPHATASE 52 IU/L (46-116); ANION GAP 14 (8-16); ASPARTATE AMINO TRANSFERASE 12 U/L (10-37); BILIRUBIN,TOTAL 0.2 MG/DL (0.1-1.0); BLOOD UREA NITROGEN 30 MG/DL (7-18); BUN/CREATININE RATIO 15.8 (6.6-38.0); CHLORIDE 105 MMOL/L (99-107); ETHANOL < 0.010 GM/DL (0.0-0.010); GLUCOSE 120 MG/DL (70-104); SODIUM 139 MMOL/L (135-145); TOTAL CARBON DIOXIDE 20.2 MMOL/L (24-32); TOTAL PROTEIN 8.2 G/DL (6.4-8.2); TROPONIN I < 0.04 NG/ML (0.0-0.05); eGFR 28 ML/MIN
[2018-05-31] MEDS ORDERED: naloxone 0.4 mg/ml inj IV ONE (18:00)
[2018-05-31 18:47] LABS: CLARITY,URINE CLEAR (Clear); COLOR,URINE YELLOW (Yellow); GLUCOSE, URINE NEGATIVE (Neg); KETONES,URINE NEGATIVE (Neg); LEUKOCYTE ESTERASE ,URINE NEGATIVE (Neg); NITRITES, URINE NEGATIVE (Neg); OCCULT BLOOD,URINE MODERATE (Neg); PROTEIN,URINE NEGATIVE (Neg); UROBILINOGEN,URINE 0.2 E.U/dL (0.2-1.0)
[2018-05-31 18:48] LABS: UA COLLECTION TYPE CLN CATCH MIDSTREAM
[2018-05-31 19:01] LABS: BACTERIA,URINE NONE SEEN /HPF (Neg); MUCUS STRANDS MODERATE /LPF (Neg); SQUAMOUS EPITHELIAL CELL,UR FEW /LPF (FEW); WBC,URINE 0-4 /HPF (0-4)
[2018-05-31 19:10] LABS: URINE AMPHETAMINE SCREEN NEGATIVE (Neg); URINE BARBITUATE SCREEN NEGATIVE (Neg); URINE BENZODIAZEPINES SCREEN NEGATIVE (Neg); URINE CANNABINOID SCREEN NEGATIVE (Neg); URINE COCAINE SCREEN NEGATIVE (Neg); URINE METHADONE SCREEN NEGATIVE (Neg); URINE OPIATE SCREEN NEGATIVE (Neg); URINE PHENCYCLIDINE SCREEN NEGATIVE (Neg)
[2018-05-31 19:11] LABS: BASOPHILS % (AUTO) 0.2 % (0-1); EOSINOPHILS # (AUTO) 0.1 X10'3 (0-0.9); EOSINOPHILS % (AUTO) 0.5 % (0-6); HEMATOCRIT 36.1 % (35.0-45.0); HEMOGLOBIN 12.3 g/dl (12.0-16.0); LYMPHOCYTES # (AUTO) 0.8 X10'3 (1.1-4.8); LYMPHOCYTES % (AUTO) 5.6 % (21-51); MEAN CORPUSCULAR VOLUME 91.1 FL (78-98); MEAN PLATELET VOLUME 8.9 FL (7.4-10.4); MONOCYTES # (AUTO) 0.5 X10'3 (0-0.9); MONOCYTES % (AUTO) 3.7 % (2-12); NEUTROPHILS # (AUTO) 13.2 X10'3 (1.8-7.7); PLATELET COUNT 188 X10'3 (140-440); RED BLOOD COUNT 3.96 X10'6 (4.20-5.60); RED CELL DISTRIBUTION WIDTH 13.8 % (11.5-14.5); WHITE BLOOD COUNT 14.6 X10'3 (4.5-11.0)
--- NOTE | 2018-05-31 19:23 | NUR ---
pt responds to verbal stimuli and gentle shoulder tap then nods back off to sleep. She remains on monitoring equipment. no change in condition.
[2018-05-31 19:32] LABS: INR 1.1 INR; PARTIAL THROMBOPLASTIN TIME 24 SECONDS (22-32); PROTHROMBIN TIME 10.7 SECONDS (9.0-12.0)
[2018-05-31] MEDS ORDERED: normal saline 1000ml 1,000 ML IV ONE (20:10)
[2018-05-31] MEDS ORDERED: magnesium Cl slow-release 64mg tablet PO PRN (20:10)
[2018-05-31] MEDS ORDERED: magnesium hydroxide 30ml (MOM) UD suspension PO PRN (20:10)
[2018-05-31] MEDS ORDERED: magnesium 2GM in 50ml NS 50 ML IV PRN (20:10)
[2018-05-31] MEDS ORDERED: magnesium 4gm in 100ml NS 100 ML IV PRN (20:10)
[2018-05-31] MEDS ORDERED: potassium Cl 20 mEq SR tablet PO PRN ×2 (20:10)
[2018-05-31] MEDS ORDERED: acetaminophen 325mg tablet PO PRN ×2 (20:10)
[2018-05-31] MEDS ORDERED: potassium Cl 40MEQ/NS 500ml 500 ML IV PRN ×2 (20:10)
[2018-05-31] MEDS ORDERED: mag hydrox/Alum hydrox/simeth 30ml oral suspension PO PRN (20:10)
--- NOTE | 2018-05-31 20:18 | NUR ---
UNABLE TO COMPLETE MED REC PT CAN'T STAY AWAKE LONG ENOUGH FOR QUESTIONING. ONE MINUTE SHE STATES SHE TOOK PAIN PILLS AND THE NEXT A MUSCLE RELAXER "ONLY ONE" AND THEN STATES "I DIDN'T TAKE ANYTHING" - PT ASKED IF SHE IS TRYING TO HURT HERSELF AND SHE STATES "NO"
--- NOTE | 2018-05-31 20:53 | NUR ---
Patient in room . I have received report from LG Mario and had the opportunity to ask questions and assume patient care.
[2018-05-31 21:14] VITALS: BP 151/110
[2018-05-31] MEDS: ondansetron/PF 4mg/2ml inj IV PRN (21:37)
[2018-05-31 23:00] VITALS: BP 141/86
[2018-06-01 03:00] VITALS: BP 115/76
[2018-06-01 06:00] VITALS: BP 125/75
--- NOTE | 2018-06-01 06:20 | NUR ---
Patient in room PCU 3009. I have received report from Vivian CASTANON and had the opportunity to ask questions and assume patient care.
--- NOTE | 2018-06-01 06:27 | NUR ---
Problems reprioritized. Patient report given, questions answered & plan of care reviewed with TuRN and LG Cherry.
--- NOTE | 2018-06-01 06:29 | NUR ---
Patient in room PCU 3009. I have received report from elena edwards and had the opportunity to ask questions and assume patient care.
[2018-06-01 06:49] LABS: BASOPHILS % (AUTO) 0.2 % (0-1); EOSINOPHILS # (AUTO) 0.1 X10'3 (0-0.9); EOSINOPHILS % (AUTO) 0.9 % (0-6); HEMATOCRIT 30.6 % (35.0-45.0); HEMOGLOBIN 10.6 g/dl (12.0-16.0); LYMPHOCYTES # (AUTO) 1.2 X10'3 (1.1-4.8); LYMPHOCYTES % (AUTO) 12.4 % (21-51); MEAN CORPUSCULAR HEMOGLOBIN 31.6 PG (27.0-31.0); MEAN CORPUSCULAR HGB CONC 34.5 g/dL (33.0-36.5); MEAN CORPUSCULAR VOLUME 91.6 FL (78-98); MEAN PLATELET VOLUME 9.3 FL (7.4-10.4); MONOCYTES # (AUTO) 0.6 X10'3 (0-0.9); MONOCYTES % (AUTO) 6.2 % (2-12); NEUTROPHILS # (AUTO) 7.6 X10'3 (1.8-7.7); NEUTROPHILS % (AUTO) 80.3 % (42-75); PLATELET COUNT 160 X10'3 (140-440); RED BLOOD COUNT 3.34 X10'6 (4.20-5.60); RED CELL DISTRIBUTION WIDTH 13.5 % (11.5-14.5); WHITE BLOOD COUNT 9.4 X10'3 (4.5-11.0)
[2018-06-01 07:12] LABS: ALBUMIN 3.3 G/DL (3.4-5.0); ANION GAP 12 (8-16); BLOOD UREA NITROGEN 22 MG/DL (7-18); BUN/CREATININE RATIO 17.9 (6.6-38.0); CALCIUM 8.9 MG/DL (8.5-10.1); CHLORIDE 107 MMOL/L (99-107); CREATININE 1.23 MG/DL (0.40-0.90); GLUCOSE 127 MG/DL (70-104); MAGNESIUM 1.6 MG/DL (1.5-2.4); SODIUM 141 MMOL/L (135-145); TOTAL CARBON DIOXIDE 21.8 MMOL/L (24-32); eGFR 47 ML/MIN
[2018-06-01] MEDS: K and/or MAG REPLACEMENT MC SCH (08:00)
[2018-06-01] MEDS: enoxaparin 30mg/0.3ml syringe SUBCUT SCH (08:37)
[2018-06-01 11:00] VITALS: BP 118/74
[2018-06-01] MEDS ORDERED: ESTR40VI4 IM (12:48)
--- NOTE | 2018-06-01 14:18 | NUR ---
PAGER ID: [phone] MESSAGE: RE: Mirlande Mccallum, room 3009A. Med Rec completed by jose foley -Dilip [facility] #[id number] Dr. Koroma paged about Pts med rec
[2018-06-01] MEDS ORDERED: non-formulary drug (Ondansetron Hcl (Zofran) 8 MG) PO PRN (14:20)
[2018-06-01] MEDS ORDERED: ondansetron 4mg rapidly disintigrating tab PO PRN (14:50)
[2018-06-01 15:00] VITALS: BP 121/73
[2018-06-01] MEDS: gabapentin 400mg capsule PO SCH ×2 (15:08→20:12)
[2018-06-01] MEDS: HYDROcodone/acetaminophen 5mg/325mg tablet PO PRN (15:54)
--- NOTE | 2018-06-01 18:33 | NUR ---
Problems reprioritized. Patient report given, questions answered & plan of care reviewed with LG GOOD.
--- NOTE | 2018-06-01 18:33 | NUR ---
PATIENT CARE COORDINATORposting machine operator: I have reviewed and agree with all interventions, assessments performed and documented by LG JOHNSON.
[2018-06-01 19:00] VITALS: BP 125/73
--- NOTE | 2018-06-01 19:02 | NUR ---
Patient in room PCU 3009. I have received report from Raquel CASTANON and had the opportunity to ask questions and assume patient care. Pt currently resting in bed. No complaints of pain or dizziness at this time. Pleasant demeanor.
[2018-06-01] MEDS ORDERED: ACETAMINOPHEN PO SCH (20:00)
[2018-06-01] MEDS ORDERED: TRAMADOL HCL PO SCH (20:00)
[2018-06-01] MEDS: ibuprofen tablet 400 MG TABLET PO SCH (20:11)
[2018-06-01] MEDS: baclofen 10mg tablet PO SCH (20:12)
[2018-06-01] MEDS: spironolactone 25 MG tablet PO SCH (20:12)
[2018-06-01] MEDS: buPROPion SR 150mg tablet PO SCH (20:12)
[2018-06-01] MEDS ORDERED: lurasidone 60mg tablet PO SCH (21:00)
[2018-06-01] MEDS ORDERED: sertraline 50mg tablet PO SCH (21:00)
[2018-06-01 23:00] VITALS: BP 137/75
[2018-06-02] MEDS: baclofen 10mg tablet PO SCH ×3 (01:21→13:23)
[2018-06-02 03:00] VITALS: BP 104/63
[2018-06-02 04:58] LABS: BASOPHILS % (AUTO) 0.4 % (0-1); EOSINOPHILS # (AUTO) 0.2 X10'3 (0-0.9); EOSINOPHILS % (AUTO) 2.6 % (0-6); HEMATOCRIT 31.8 % (35.0-45.0); LYMPHOCYTES # (AUTO) 1.4 X10'3 (1.1-4.8); MEAN CORPUSCULAR HEMOGLOBIN 31.6 PG (27.0-31.0); MEAN CORPUSCULAR HGB CONC 34.5 g/dL (33.0-36.5); MEAN CORPUSCULAR VOLUME 91.6 FL (78-98); MEAN PLATELET VOLUME 9.1 FL (7.4-10.4); MONOCYTES # (AUTO) 0.5 X10'3 (0-0.9); MONOCYTES % (AUTO) 7.5 % (2-12); NEUTROPHILS # (AUTO) 4.7 X10'3 (1.8-7.7); NEUTROPHILS % (AUTO) 68.5 % (42-75); PLATELET COUNT 162 X10'3 (140-440); RED BLOOD COUNT 3.48 X10'6 (4.20-5.60); RED CELL DISTRIBUTION WIDTH 13.6 % (11.5-14.5); WHITE BLOOD COUNT 6.9 X10'3 (4.5-11.0)
[2018-06-02 05:14] LABS: ALBUMIN 3.3 G/DL (3.4-5.0); ANION GAP 10 (8-16); BLOOD UREA NITROGEN 19 MG/DL (7-18); BUN/CREATININE RATIO 19.2 (6.6-38.0); CALCIUM 8.9 MG/DL (8.5-10.1); CHLORIDE 105 MMOL/L (99-107); CREATININE 0.99 MG/DL (0.40-0.90); GLUCOSE 105 MG/DL (70-104); MAGNESIUM 1.2 MG/DL (1.5-2.4); POTASSIUM 3.8 MMOL/L (3.5-5.1); SODIUM 138 MMOL/L (135-145); TOTAL CARBON DIOXIDE 23.3 MMOL/L (24-32); eGFR 60 ML/MIN
[2018-06-02] MEDS: ondansetron/PF 4mg/2ml inj IV PRN (05:17)
[2018-06-02] MEDS: HYDROcodone/acetaminophen 5mg/325mg tablet PO PRN ×2 (05:18→11:17)
[2018-06-02 06:00] VITALS: BP 130/77
--- NOTE | 2018-06-02 06:00 | NUR ---
Patient in room PCU 3009. I have received report from Karina RN and had the opportunity to ask questions and assume patient care.
--- NOTE | 2018-06-02 06:29 | NUR ---
Problems reprioritized. Patient report given, questions answered & plan of care reviewed with Raquel CASTANON.
--- NOTE | 2018-06-02 06:33 | NUR ---
Patient in room PCU 3009. I have received report from elena wall and had the opportunity to ask questions and assume patient care.
[2018-06-02] MEDS: gabapentin 400mg capsule PO SCH ×2 (08:00→13:22)
[2018-06-02] MEDS ORDERED: loratadine 10mg tablet PO SCH (08:00)
[2018-06-02] MEDS ORDERED: buproprion 150mg XL (24-hour) tablet PO SCH (08:00)
[2018-06-02] MEDS: enoxaparin 30mg/0.3ml syringe SUBCUT SCH (08:00)
[2018-06-02] MEDS: K and/or MAG REPLACEMENT MC SCH (08:00)
[2018-06-02] MEDS: ibuprofen tablet 400 MG TABLET PO SCH (08:00)
[2018-06-02] MEDS: buPROPion SR 150mg tablet PO SCH ×2 (08:01→13:22)
[2018-06-02] MEDS: spironolactone 25 MG tablet PO SCH (08:02)
[2018-06-02 11:00] VITALS: BP 124/81
[2018-06-02] MEDS ORDERED: TRAM1TAB7 PO (12:09)
--- NOTE | 2018-06-02 12:28 | NUR ---
WILSON MELLO, STROKE RN CALLED, WILL ASSESS PT PER DR. PLUNKETT'S REQUEST.
--- NOTE | 2018-06-02 12:47 | NUR ---
PAGER ID: [phone] MESSAGE: DR. PLUNKETT, [phone]. DISCHARGE SAYS STOP IBU. WE STILL HAVE IT ORDERED FOR IN PATIENT. CAN I DISCONTINUE THE IBU?DUE AT 1300. SANDRA [phone]. TY.
--- NOTE | 2018-06-02 14:16 | NUR ---
CALL FROM DR PLUNKETT, STATES"OKAY TO DISCHARGE HOME. I WILL HAVE HER FOLLOW UP WITH DR. NOVOA FOR RESULTS OF EEG".
--- NOTE | 2018-06-02 17:30 | NUR ---
DIESEL MAINTENANCE ELECTRICIANelectronic equipment trades worker: I have reviewed and agree with all interventions, assessments performed and documented by LG JOHNSON.
== END 2018-06-02 16:54 | disposition home or self-care (01) ==
LOC: ER 16:49 → ED HOLD 20:13 → INTOOBSV 20:13 → PCU 3S 21:05
PROVIDERS: ADMIT Hospitalist; ATTEND Family Medicine
DX: R55 Syncope and collapse (principal); E86.0 Dehydration; E11.649 Type 2 diabetes mellitus with hypoglycemia without coma; E87.1 Hypo-osmolality and hyponatremia; E87.0 Hyperosmolality and hypernatremia; I10 Essential (primary) hypertension; I26.99 Other pulmonary embolism without acute cor pulmonale; M54.9 Dorsalgia, unspecified; G89.29 Other chronic pain; F31.9 Bipolar disorder, unspecified; N17.9 Acute kidney failure, unspecified; G93.40 Encephalopathy, unspecified; T68.XXXA Hypothermia, initial encounter
CPT/HCPCS: 36415; 70450; 71045; 80048; 80053; 80305; 80320; 81001; 82140; 82948; 83605; 83735; 84484; 85025; 85610; 85730; 87040; 87070; 93005; 95816; 96361; 96372; 96374; 96375; 96376; 99284; G0378; J0780; J1650; J2310; J2405; 99285

== ENCOUNTER 2018-10-12 00:34 | Outpatient (CLI) | payer MEDICARE, MEDICAID ==
[~2018-10-12 00:34] MED LIST changes: -ALBU8HFA PO; +CEPH-571 PO; +ESTR40VI4 IM; -IBUP-1986 PO
== END 2018-10-12 23:59 | disposition home or self-care (01) ==
LOC: DIABETIC 00:34
PROVIDERS: ATTEND Family Medicine
DX: E66.09 Other obesity due to excess calories (principal); Z71.3 Dietary counseling and surveillance
CPT/HCPCS: 97802

== ENCOUNTER 2019-01-26 15:49 | Emergency (ER) | payer MEDICARE, MEDICAID ==
[~2019-01-26] VITALS: Ht 177.8 cm; Wt 92.3 kg
[2019-01-26 16:38] LABS: BASOPHILS # (AUTO) 0.1 X10'3 (0-0.2); BASOPHILS % (AUTO) 0.5 % (0-1); EOSINOPHILS % (AUTO) 0.3 % (0-6); HEMATOCRIT 33.8 % (35.0-45.0); HEMOGLOBIN 11.5 g/dl (12.0-16.0); LYMPHOCYTES # (AUTO) 0.9 X10'3 (1.1-4.8); MEAN CORPUSCULAR HEMOGLOBIN 30.8 PG (27.0-31.0); MEAN CORPUSCULAR VOLUME 90.5 FL (78-98); MEAN PLATELET VOLUME 8.8 FL (7.4-10.4); MONOCYTES # (AUTO) 0.4 X10'3 (0-0.9); NEUTROPHILS % (AUTO) 89.2 % (42-75); PLATELET COUNT 177 X10'3 (140-440); RED BLOOD COUNT 3.73 X10'6 (4.20-5.60); RED CELL DISTRIBUTION WIDTH 13.4 % (11.5-14.5); WHITE BLOOD COUNT 12.4 X10'3 (4.5-11.0)
[2019-01-26 16:54] LABS: ALANINE AMINOTRANSFERASE 14 U/L (12-78); ALBUMIN 3.8 G/DL (3.4-5.0); ALKALINE PHOSPHATASE 44 IU/L (46-116); ANION GAP 12 (8-16); ASPARTATE AMINO TRANSFERASE 15 U/L (10-37); BILIRUBIN,TOTAL 0.4 MG/DL (0.1-1.0); BLOOD UREA NITROGEN 25 MG/DL (7-18); BUN/CREATININE RATIO 13.5 (6.6-38.0); CALCIUM 8.9 MG/DL (8.5-10.1); CHLORIDE 105 MMOL/L (99-107); CREATININE 1.85 MG/DL (0.40-0.90); GLUCOSE 97 MG/DL (70-104); LIPASE 100 U/L (73-393); POTASSIUM 5.1 MMOL/L (3.5-5.1); SODIUM 140 MMOL/L (135-145); TOTAL CARBON DIOXIDE 22.9 MMOL/L (24-32); TOTAL PROTEIN 7.6 G/DL (6.4-8.2); eGFR 29 ML/MIN
[2019-01-26 17:42] LABS: CLARITY,URINE CLEAR (Clear); COLOR,URINE YELLOW (Yellow); GLUCOSE, URINE NEGATIVE (Neg); KETONES,URINE 15 mg/dl (Neg); LEUKOCYTE ESTERASE ,URINE NEGATIVE (Neg); NITRITES, URINE NEGATIVE (Neg); OCCULT BLOOD,URINE SMALL (Neg); PROTEIN,URINE NEGATIVE (Neg); UA COLLECTION TYPE STRAIGHT CATH; URINE HCG NEGATIVE (NEG); UROBILINOGEN,URINE 0.2 E.U/dL (0.2-1.0)
[2019-01-26 17:51] LABS: BACTERIA,URINE NONE SEEN /HPF (Neg); MUCUS STRANDS NONE SEEN /LPF (Neg); SQUAMOUS EPITHELIAL CELL,UR NONE SEEN /LPF (FEW); WBC,URINE 0-4 /HPF (0-4)
[2019-01-26 18:22] VITALS: BP 125/89
[2019-01-26] MEDS ORDERED: FLO0.4C PO (19:07)
[2019-01-26] MEDS ORDERED: HYDR-4383 PO (19:07)
== END 2019-01-26 19:26 | disposition home or self-care (01) ==
LOC: ER 15:49
DX: N23 Unspecified renal colic (principal); I10 Essential (primary) hypertension; Z87.442 Personal history of urinary calculi; G89.29 Other chronic pain; Z86.711 Personal history of pulmonary embolism; F41.9 Anxiety disorder, unspecified; F31.9 Bipolar disorder, unspecified; Z98.890 Other specified postprocedural states; Z88.5 Allergy status to narcotic agent; Z88.2 Allergy status to sulfonamides; Z88.0 Allergy status to penicillin; Z79.899 Other long term (current) drug therapy
CPT/HCPCS: 36415; 74176; 80053; 81001; 81025; 83690; 85025; 99284

== ENCOUNTER 2019-01-30 02:06 | Inpatient (IN) | payer MEDICARE, MEDICAID ==
[~2019-01-30] VITALS: Ht 177.8 cm; Wt 89.5 kg
[~2019-01-30 02:06] MED LIST changes: +FLO0.4C PO; +HYDR-4383 PO
[2019-01-30] MEDS ORDERED: normal saline 1000ML IV soln IVB ONE ×2 (02:15→02:30)
[2019-01-30] MEDS ORDERED: ondansetron/PF 4mg/2ml inj IV ONE ×2 (02:15→02:30)
[2019-01-30] MEDS ORDERED: famotidine/PF 10 mg/ml inj IV ONE (02:30)
[2019-01-30] MEDS ORDERED: pantoprazole 40 MG vial IV ONE (02:30)
[2019-01-30] MEDS ORDERED: pantoprazole 40MG/NS 100ML BAG 100 ML IV SCH (02:35)
[2019-01-30 02:48] LABS: ALANINE AMINOTRANSFERASE 20 U/L (12-78); ALBUMIN 4.4 G/DL (3.4-5.0); ALKALINE PHOSPHATASE 56 IU/L (46-116); ANION GAP 28 (8-16); ASPARTATE AMINO TRANSFERASE 16 U/L (10-37); BILIRUBIN,TOTAL 0.7 MG/DL (0.1-1.0); BLOOD UREA NITROGEN 29 MG/DL (7-18); BUN/CREATININE RATIO 14.9 (6.6-38.0); CALCIUM 8.9 MG/DL (8.5-10.1); CHLORIDE 94 MMOL/L (99-107); CREATININE 1.95 MG/DL (0.40-0.90); GLUCOSE 106 MG/DL (70-104); LIPASE 190 U/L (73-393); POTASSIUM 3.8 MMOL/L (3.5-5.1); SODIUM 134 MMOL/L (135-145); TOTAL PROTEIN 8.9 G/DL (6.4-8.2); eGFR 27 ML/MIN
[2019-01-30 02:51] LABS: TOTAL CARBON DIOXIDE 12.2 MMOL/L (24-32)
[2019-01-30 02:59] LABS: BASOPHILS % (AUTO) 0.2 % (0-1); EOSINOPHILS % (AUTO) 0 % (0-6); HEMATOCRIT 40.1 % (35.0-45.0); HEMOGLOBIN 13.7 g/dl (12.0-16.0); LYMPHOCYTES # (AUTO) 0.9 X10'3 (1.1-4.8); LYMPHOCYTES % (AUTO) 4.8 % (21-51); MEAN CORPUSCULAR HEMOGLOBIN 30.6 PG (27.0-31.0); MEAN CORPUSCULAR HGB CONC 34.2 g/dL (33.0-36.5); MEAN CORPUSCULAR VOLUME 89.6 FL (78-98); MEAN PLATELET VOLUME 8.9 FL (7.4-10.4); MONOCYTES # (AUTO) 1.3 X10'3 (0-0.9); MONOCYTES % (AUTO) 6.8 % (2-12); NEUTROPHILS # (AUTO) 17.2 X10'3 (1.8-7.7); NEUTROPHILS % (AUTO) 88.2 % (42-75); PLATELET COUNT 282 X10'3 (140-440); RED BLOOD COUNT 4.47 X10'6 (4.20-5.60); RED CELL DISTRIBUTION WIDTH 13.6 % (11.5-14.5); WHITE BLOOD COUNT 19.5 X10'3 (4.5-11.0)
[2019-01-30 03:25] LABS: ABG BASE EXCESS -16.4 mmol/L (-2.0-3.0); ABG HCO3 7.8 mmol/L (22.0-26.0); ABG OXYGEN SATURATION 96.7 % (95-98); ABG PCO2 (T) 16.3 mmHg (35.0-45.0); ABG PH (T) 7.296 (7.350-7.450); ABG PO2 (T) 99.6 mmHg (83-108); ALLEN'S TEST Positive; FCOHb 0.3 % (0.5-1.5); FO2Hb 96.4 % (94-100); PATIENT TEMPERATURE 36.6; TOTAL HEMOGLOBIN 12.4 G/dl (12.0-16.0)
[2019-01-30] MEDS ORDERED: levoFLOXACIN-Levaquin 750MG/D5 150 ML IV ONE (03:45)
[2019-01-30 04:02] LABS: URINE AMPHETAMINE SCREEN NEGATIVE (Neg); URINE BARBITUATE SCREEN NEGATIVE (Neg); URINE BENZODIAZEPINES SCREEN NEGATIVE (Neg); URINE CANNABINOID SCREEN NEGATIVE (Neg); URINE COCAINE SCREEN NEGATIVE (Neg); URINE METHADONE SCREEN NEGATIVE (Neg); URINE OPIATE SCREEN NEGATIVE (Neg); URINE PHENCYCLIDINE SCREEN NEGATIVE (Neg)
[2019-01-30 04:07] LABS: CLARITY,URINE CLEAR (Clear); COLOR,URINE YELLOW (Yellow); GLUCOSE, URINE NEGATIVE (Neg); KETONES,URINE >=80 mg/dl (Neg); LEUKOCYTE ESTERASE ,URINE NEGATIVE (Neg); NITRITES, URINE NEGATIVE (Neg); OCCULT BLOOD,URINE SMALL (Neg); PROTEIN,URINE TRACE mg/dl (Neg)
[2019-01-30 04:08] LABS: UA COLLECTION TYPE CLN CATCH MIDSTREAM
[2019-01-30 04:23] LABS: BACTERIA,URINE FEW /HPF (Neg); MUCUS STRANDS MODERATE /LPF (Neg); SQUAMOUS EPITHELIAL CELL,UR FEW /LPF (FEW)
[2019-01-30] MEDS ORDERED: magnesium 4gm in 100ml NS 100 ML IV PRN (04:40)
[2019-01-30] MEDS ORDERED: mag hydrox/Alum hydrox/simeth 30ml oral suspension PO PRN (04:40)
[2019-01-30] MEDS ORDERED: potassium Cl 20 mEq SR tablet PO PRN (04:40)
[2019-01-30] MEDS ORDERED: magnesium 2GM in 50ml NS 50 ML IV PRN (04:40)
[2019-01-30] MEDS ORDERED: potassium CL 10mEq/100ml bag 100 ML IV PRN ×2 (04:40)
[2019-01-30] MEDS ORDERED: magnesium Cl slow-release 64mg tablet PO PRN (04:40)
[2019-01-30] MEDS ORDERED: magnesium hydroxide 30ml (MOM) UD suspension PO PRN (04:40)
[2019-01-30] MEDS ORDERED: acetaminophen 325mg tablet PO PRN (04:40)
--- NOTE | 2019-01-30 05:32 | NUR ---
unable to establish second line for levaquin administration. 3 nurses tried unsuccessfully. MD made aware and ordered protonix drip to be put on hold and levaquin administered.
--- NOTE | 2019-01-30 05:40 | NUR ---
pt takes estradiol IM Q 7 days. Pt gaver herself an injection 01/30/19 before coming to the ER
--- NOTE | 2019-01-30 05:51 | NUR ---
PAGER ID: [phone] MESSAGE: Mirlande Mccallum, ER bed 6 continues to be asymptomatically tachycardic at 127 bpm. Any orders before transfer to Ortho/neuro?. Shari [id number]
[2019-01-30 06:25] LABS: OCCULT BLOOD STOOL NEGATIVE (Neg)
[2019-01-30 06:40] VITALS: BP 139/85
[2019-01-30] MEDS ORDERED: METO50TA16 PO (07:21)
[2019-01-30] MEDS ORDERED: DIPH25CA46 PO (07:21)
[2019-01-30] MEDS ORDERED: GLYC1TAB23 PO (07:21)
[2019-01-30] MEDS ORDERED: OMEP-50 PO (07:21)
[2019-01-30] MEDS ORDERED: FENO145T25 PO (07:21)
[2019-01-30] MEDS: normal saline 1000ml 1,000 ML IV SCH ×3 (07:54→21:28)
[2019-01-30] MEDS: K and/or MAG REPLACEMENT MC SCH (08:00)
--- NOTE | 2019-01-30 08:07 | NUR ---
PAGER ID: [phone] MESSAGE: RE: [id number] Xena Nogueira, New admit. Patient vomiting now, no antiemetics ordered. Was given Zofran in ER 5 hours ago. MAITLAND [id number]
[2019-01-30] MEDS: ondansetron/PF 4mg/2ml inj IV PRN ×2 (08:30→15:16)
[2019-01-30] MEDS: lactobacillus rhamnosus 10,000 MMU CELLS/CAPSULE PO SCH ×2 (09:27→20:15)
[2019-01-30] MEDS: gabapentin 100mg capsule PO SCH ×3 (09:27→20:20)
[2019-01-30] MEDS: metoprolol tartrate 50mg tablet PO SCH ×2 (09:28→20:20)
[2019-01-30] MEDS: pantoprazole 40mg Tablet.DR PO SCH (09:29)
[2019-01-30] MEDS: loratadine 10mg tablet PO SCH (09:30)
[2019-01-30] MEDS: fenofibrate 145mg tablet PO SCH (09:31)
[2019-01-30] MEDS: enoxaparin 40mg/0.4ml syringe SQ SCH (09:36)
[2019-01-30] MEDS: glycopyrrolate 1mg tablet PO SCH (09:40)
[2019-01-30 10:00] VITALS: BP 130/89
[2019-01-30 10:06] LABS: MAGNESIUM 1.7 MG/DL (1.5-2.4)
[2019-01-30] MEDS ORDERED: HYDROcodone/acetaminophen 5mg/325mg tablet PO PRN (10:30)
[2019-01-30] MEDS: HYDROcodone/acetaminophen 10/325mg tab PO PRN ×2 (11:51→20:34)
[2019-01-30] MEDS: buproprion 150mg XL (24-hour) tablet PO SCH (11:52)
[2019-01-30 12:47] LABS: C DIFF ANTIGEN NEGATIVE (NEGATIVE); C DIFF SPECIMEN=DIARRHEA? ACCEPTABLE; C DIFFICILE TOXINS A&B NEGATIVE (Neg)
--- NOTE | 2019-01-30 15:08 | NUR ---
PAGER ID: [phone] MESSAGE: RE: [id number] Mirlande Mccallum. Occult stool neg, c-diff neg. CT scan showed bilat renal calculi and cysts. Still having diarrhea asking for Imodium. OMAR [id number]
[2019-01-30] MEDS: metroNIDAZOLE-Flagyl 500mg/NS 100 ML IV SCH (15:16)
[2019-01-30 18:00] VITALS: BP 126/78
--- NOTE | 2019-01-30 18:30 | NUR ---
Problems reprioritized. Patient report given, questions answered & plan of care reviewed with Clara CASTANON.
--- NOTE | 2019-01-30 18:36 | NUR ---
Problems reprioritized. Patient report given, questions answered & plan of care reviewed with Clara CASTANON.
--- NOTE | 2019-01-30 19:01 | NUR ---
Patient in room ORTHO 4022. I have received report from Cate CASTANON and had the opportunity to ask questions and assume patient care.
[2019-01-30] MEDS: sertraline 50mg tablet PO SCH (20:16)
[2019-01-30] MEDS: lurasidone 20mg tablet PO SCH (20:16)
[2019-01-30] MEDS: diphenhydrAMINE 25mg capsule PO SCH (20:16)
[2019-01-30 22:00] VITALS: BP 116/71
[2019-01-31] MEDS: metroNIDAZOLE-Flagyl 500mg/NS 100 ML IV SCH ×3 (00:04→16:18)
[2019-01-31 06:00] VITALS: BP 98/67
[2019-01-31 06:26] LABS: ALBUMIN 2.9 G/DL (3.4-5.0); ANION GAP 12 (8-16); BASOPHILS % (AUTO) 0.4 % (0-1); BLOOD UREA NITROGEN 16 MG/DL (7-18); BUN/CREATININE RATIO 11.6 (6.6-38.0); CALCIUM 7.3 MG/DL (8.5-10.1); CHLORIDE 106 MMOL/L (99-107); CREATININE 1.38 MG/DL (0.40-0.90); EOSINOPHILS # (AUTO) 0.1 X10'3 (0-0.9); EOSINOPHILS % (AUTO) 1.5 % (0-6); GLUCOSE 125 MG/DL (70-104); HEMATOCRIT 28.5 % (35.0-45.0); HEMOGLOBIN 9.9 g/dl (12.0-16.0); LYMPHOCYTES # (AUTO) 0.9 X10'3 (1.1-4.8); LYMPHOCYTES % (AUTO) 15.1 % (21-51); MAGNESIUM 1.6 MG/DL (1.5-2.4); MEAN CORPUSCULAR HEMOGLOBIN 31.5 PG (27.0-31.0); MEAN CORPUSCULAR HGB CONC 34.7 g/dL (33.0-36.5); MEAN CORPUSCULAR VOLUME 90.9 FL (78-98); MEAN PLATELET VOLUME 8.7 FL (7.4-10.4); MONOCYTES # (AUTO) 0.7 X10'3 (0-0.9); MONOCYTES % (AUTO) 11.9 % (2-12); NEUTROPHILS # (AUTO) 4.4 X10'3 (1.8-7.7); NEUTROPHILS % (AUTO) 71.1 % (42-75); PLATELET COUNT 174 X10'3 (140-440); POTASSIUM 3.2 MMOL/L (3.5-5.1); RED BLOOD COUNT 3.14 X10'6 (4.20-5.60); RED CELL DISTRIBUTION WIDTH 13.5 % (11.5-14.5); SODIUM 137 MMOL/L (135-145); TOTAL CARBON DIOXIDE 19.2 MMOL/L (24-32); WHITE BLOOD COUNT 6.2 X10'3 (4.5-11.0); eGFR 41 ML/MIN
--- NOTE | 2019-01-31 06:37 | NUR ---
Problems reprioritized. Patient report given, questions answered & plan of care reviewed with ANJALI CASTANON.
[2019-01-31] MEDS: K and/or MAG REPLACEMENT MC SCH (08:09)
[2019-01-31] MEDS: pantoprazole 40mg Tablet.DR PO SCH (08:20)
[2019-01-31] MEDS: metoprolol tartrate 50mg tablet PO SCH ×2 (08:21→19:04)
[2019-01-31] MEDS: loratadine 10mg tablet PO SCH (08:21)
[2019-01-31] MEDS: fenofibrate 145mg tablet PO SCH (08:21)
[2019-01-31] MEDS: glycopyrrolate 1mg tablet PO SCH (08:21)
[2019-01-31] MEDS: buproprion 150mg XL (24-hour) tablet PO SCH (08:21)
[2019-01-31] MEDS: lactobacillus rhamnosus 10,000 MMU CELLS/CAPSULE PO SCH ×2 (08:21→19:03)
[2019-01-31] MEDS: gabapentin 100mg capsule PO SCH ×3 (08:21→21:45)
[2019-01-31] MEDS: levoFLOXACIN-Levaquin 250mg/D5 50 ML IV SCH (08:22)
[2019-01-31] MEDS: enoxaparin 40mg/0.4ml syringe SQ SCH (08:22)
[2019-01-31] MEDS: HYDROcodone/acetaminophen 10/325mg tab PO PRN ×2 (08:26→21:51)
[2019-01-31 10:00] VITALS: BP 120/69
[2019-01-31] MEDS: normal saline 1000ml 1,000 ML IV SCH (11:27)
[2019-01-31 17:00] VITALS: BP 116/71
[2019-01-31] MEDS: potassium Cl 20 mEq SR tablet PO PRN ×2 (17:37→21:45)
--- NOTE | 2019-01-31 18:15 | NUR ---
Patient in room ORTHO 4022. I have received report from Kimberly CASTANON and had the opportunity to ask questions and assume patient care.
--- NOTE | 2019-01-31 18:18 | NUR ---
Problems reprioritized. Patient report given, questions answered & plan of care reviewed with Melissa CASTANON.
[2019-01-31 19:00] VITALS: BP 122/74
[2019-01-31] MEDS: diphenhydrAMINE 25mg capsule PO SCH (21:44)
[2019-01-31] MEDS: lurasidone 20mg tablet PO SCH (21:45)
[2019-01-31] MEDS: sertraline 50mg tablet PO SCH (21:45)
[2019-01-31 22:00] VITALS: BP 122/71
[2019-02-01] MEDS: normal saline 1000ml 1,000 ML IV SCH ×2 (01:02→06:39)
[2019-02-01] MEDS: metroNIDAZOLE-Flagyl 500mg/NS 100 ML IV SCH ×2 (01:02→07:56)
[2019-02-01] MEDS: potassium Cl 20 mEq SR tablet PO PRN (02:41)
[2019-02-01 05:53] LABS: BASOPHILS % (AUTO) 0.6 % (0-1); EOSINOPHILS # (AUTO) 0.1 X10'3 (0-0.9); EOSINOPHILS % (AUTO) 1.3 % (0-6); HEMATOCRIT 27.6 % (35.0-45.0); HEMOGLOBIN 9.6 g/dl (12.0-16.0); LYMPHOCYTES # (AUTO) 1.1 X10'3 (1.1-4.8); MEAN CORPUSCULAR HEMOGLOBIN 31.3 PG (27.0-31.0); MEAN CORPUSCULAR HGB CONC 34.8 g/dL (33.0-36.5); MEAN CORPUSCULAR VOLUME 90.2 FL (78-98); MEAN PLATELET VOLUME 8.8 FL (7.4-10.4); MONOCYTES # (AUTO) 0.5 X10'3 (0-0.9); MONOCYTES % (AUTO) 10.2 % (2-12); NEUTROPHILS # (AUTO) 3.4 X10'3 (1.8-7.7); NEUTROPHILS % (AUTO) 66.9 % (42-75); PLATELET COUNT 151 X10'3 (140-440); RED BLOOD COUNT 3.07 X10'6 (4.20-5.60); RED CELL DISTRIBUTION WIDTH 13.7 % (11.5-14.5); WHITE BLOOD COUNT 5.1 X10'3 (4.5-11.0)
[2019-02-01 06:00] VITALS: BP 112/60
[2019-02-01 06:05] LABS: ALBUMIN 2.7 G/DL (3.4-5.0); ANION GAP 9 (8-16); BLOOD UREA NITROGEN 10 MG/DL (7-18); BUN/CREATININE RATIO 9.2 (6.6-38.0); CALCIUM 7.6 MG/DL (8.5-10.1); CHLORIDE 109 MMOL/L (99-107); CREATININE 1.09 MG/DL (0.40-0.90); GLUCOSE 103 MG/DL (70-104); MAGNESIUM 1.8 MG/DL (1.5-2.4); POTASSIUM 3.7 MMOL/L (3.5-5.1); SODIUM 139 MMOL/L (135-145); TOTAL CARBON DIOXIDE 20.9 MMOL/L (24-32); eGFR 54 ML/MIN
--- NOTE | 2019-02-01 06:20 | NUR ---
Problems reprioritized. Patient report given, questions answered & plan of care reviewed with Kimberly CASTANON.
[2019-02-01] MEDS: K and/or MAG REPLACEMENT MC SCH (07:47)
[2019-02-01] MEDS: loratadine 10mg tablet PO SCH (07:56)
[2019-02-01] MEDS: lactobacillus rhamnosus 10,000 MMU CELLS/CAPSULE PO SCH (07:56)
[2019-02-01] MEDS: pantoprazole 40mg Tablet.DR PO SCH (07:56)
[2019-02-01] MEDS: metoprolol tartrate 50mg tablet PO SCH (07:56)
[2019-02-01] MEDS: levoFLOXACIN-Levaquin 250mg/D5 50 ML IV SCH (07:56)
[2019-02-01] MEDS: fenofibrate 145mg tablet PO SCH (07:57)
[2019-02-01] MEDS: gabapentin 100mg capsule PO SCH (07:57)
[2019-02-01] MEDS: enoxaparin 40mg/0.4ml syringe SQ SCH (07:57)
[2019-02-01] MEDS: buproprion 150mg XL (24-hour) tablet PO SCH (07:57)
[2019-02-01] MEDS: glycopyrrolate 1mg tablet PO SCH (07:57)
[2019-02-01] MEDS: HYDROcodone/acetaminophen 10/325mg tab PO PRN (08:00)
[2019-02-01] MEDS ORDERED: HYDR-4383 PO (08:25)
[2019-02-01] MEDS ORDERED: METR-159 PO (08:25)
[2019-02-01] MEDS ORDERED: LEVO500T2 PO (08:25)
[2019-02-01 10:15] VITALS: BP 118/78
== END 2019-02-01 12:25 | disposition home or self-care (01) | DRG 871 ==
LOC: ER 02:06 → ED HOLD 04:39 → OBSVTOIN 04:43 → ORTHO 4S 06:40
PROVIDERS: ADMIT Hospitalist; ATTEND Internal Medicine
DX: A41.9 Sepsis, unspecified organism (principal); N17.0 Acute kidney failure with tubular necrosis; A09 Infectious gastroenteritis and colitis, unspecified; E87.4 Mixed disorder of acid-base balance; F41.9 Anxiety disorder, unspecified; F31.9 Bipolar disorder, unspecified; I12.9 Hypertensive chronic kidney disease with stage 1 through stage 4 chronic kidney disease, or unspecified chronic kidney disease; G89.29 Other chronic pain; K21.9 Gastro-esophageal reflux disease without esophagitis; D64.9 Anemia, unspecified; E87.6 Hypokalemia; M54.9 Dorsalgia, unspecified; N18.9 Chronic kidney disease, unspecified; Z59.0 Homelessness; Z79.891 Long term (current) use of opiate analgesic; Z82.49 Family history of ischemic heart disease and other diseases of the circulatory system; Z83.3 Family history of diabetes mellitus; Z86.711 Personal history of pulmonary embolism; Z87.442 Personal history of urinary calculi; Z79.899 Other long term (current) drug therapy; Z88.0 Allergy status to penicillin; Z88.2 Allergy status to sulfonamides; Z88.8 Allergy status to other drugs, medicaments and biological substances
CPT/HCPCS: 36415; 36600; 74176; 80048; 80053; 80305; 81001; 82272; 82803; 83605; 83690; 83735; 84145; 85018; 85025; 87040; 87045; 87046; 87081; 87088; 87324; 87449; 93005; 96365; 96375; 99285; C9113; G0378; J1650; J1956; J2405; J3490; J7030; Q0163

== ENCOUNTER 2019-02-17 09:22 | Inpatient (IN) | payer MEDICARE, MEDICAID ==
[~2019-02-17] VITALS: Ht 177.8 cm; Wt 94.7 kg
[~2019-02-17 09:22] MED LIST changes: -CEPH-571 PO; +DIPH25CA46 PO; +FENO145T25 PO; -FLO0.4C PO; +GLYC1TAB23 PO; +LEVO500T2 PO; +METO50TA16 PO; +METR-159 PO; +OMEP-50 PO
--- NOTE | 2019-02-17 09:59 | NUR ---
pt ambulating to the bathroom
[2019-02-17 10:32] LABS: CLARITY,URINE CLEAR (Clear); COLOR,URINE YELLOW (Yellow); GLUCOSE, URINE NEGATIVE (Neg); KETONES,URINE NEGATIVE (Neg); LEUKOCYTE ESTERASE ,URINE NEGATIVE (Neg); NITRITES, URINE NEGATIVE (Neg); OCCULT BLOOD,URINE NEGATIVE (Neg); PROTEIN,URINE NEGATIVE (Neg); UROBILINOGEN,URINE 0.2 E.U/dL (0.2-1.0)
[2019-02-17 10:42] LABS: UA COLLECTION TYPE CLN CATCH MIDSTREAM
[2019-02-17] MEDS ORDERED: normal saline 1000ML IV soln IVB ONE (12:30)
[2019-02-17 13:10] LABS: BASOPHILS % (AUTO) 0.5 % (0-1); EOSINOPHILS # (AUTO) 0.1 X10'3 (0-0.9); EOSINOPHILS % (AUTO) 1.6 % (0-6); HEMATOCRIT 34.7 % (35.0-45.0); HEMOGLOBIN 11.7 g/dl (12.0-16.0); LYMPHOCYTES # (AUTO) 0.9 X10'3 (1.1-4.8); LYMPHOCYTES % (AUTO) 11.2 % (21-51); MEAN CORPUSCULAR HEMOGLOBIN 30.9 PG (27.0-31.0); MEAN CORPUSCULAR HGB CONC 33.7 g/dL (33.0-36.5); MEAN CORPUSCULAR VOLUME 91.6 FL (78-98); MONOCYTES # (AUTO) 0.4 X10'3 (0-0.9); MONOCYTES % (AUTO) 4.4 % (2-12); NEUTROPHILS # (AUTO) 6.9 X10'3 (1.8-7.7); NEUTROPHILS % (AUTO) 82.3 % (42-75); PLATELET COUNT 169 X10'3 (140-440); RED BLOOD COUNT 3.79 X10'6 (4.20-5.60); RED CELL DISTRIBUTION WIDTH 13.6 % (11.5-14.5); WHITE BLOOD COUNT 8.3 X10'3 (4.5-11.0)
[2019-02-17 13:21] LABS: ANION GAP 7 (8-16); BLOOD UREA NITROGEN 18 MG/DL (7-18); BUN/CREATININE RATIO 13.4 (6.6-38.0); CHLORIDE 106 MMOL/L (99-107); CREATININE 1.34 MG/DL (0.40-0.90); GLUCOSE 95 MG/DL (70-104); SODIUM 136 MMOL/L (135-145); TOTAL CARBON DIOXIDE 22.6 MMOL/L (24-32)
[2019-02-17 13:22] LABS: ALANINE AMINOTRANSFERASE 17 U/L (12-78); ALBUMIN 3.4 G/DL (3.4-5.0); ALBUMIN/GLOBULIN RATIO 0.9 (1.1-1.5); ALKALINE PHOSPHATASE 40 IU/L (46-116); ASPARTATE AMINO TRANSFERASE 8 U/L (10-37); BILIRUBIN,TOTAL 0.2 MG/DL (0.1-1.0); CALCIUM 8.1 MG/DL (8.5-10.1); TOTAL PROTEIN 7.1 G/DL (6.4-8.2); eGFR 42 ML/MIN
[2019-02-17 13:36] LABS: POTASSIUM 6.2 MMOL/L (3.5-5.1)
[2019-02-17] MEDS ORDERED: furosemide 10 MG/1 ML 10ml inj IV ONE (13:45)
[2019-02-17] MEDS ORDERED: insulin regular, human 10 units/0.1 ml syringe IV ONE (13:45)
[2019-02-17] MEDS ORDERED: dextrose 50%-water 50ml dispensing syringe IV ONE (13:45)
[2019-02-17] MEDS ORDERED: magnesium hydroxide 30ml (MOM) UD suspension PO PRN (13:55)
[2019-02-17] MEDS ORDERED: mag hydrox/Alum hydrox/simeth 30ml oral suspension PO PRN (13:55)
[2019-02-17] MEDS ORDERED: ondansetron/PF 4mg/2ml inj IV PRN (13:55)
[2019-02-17] MEDS ORDERED: acetaminophen 325mg tablet PO PRN (13:55)
[2019-02-17] MEDS ORDERED: sodium polystyrene sulfonate 15gm/60ml oral suspension PO ONE (14:00)
[2019-02-17] MEDS: normal saline 1000ml 1,000 ML IV SCH (14:55)
--- NOTE | 2019-02-17 15:05 | NUR ---
Received report from LG Guy in the ED. Will await the patients arrival.
[2019-02-17 15:26] VITALS: BP 133/83
--- NOTE | 2019-02-17 15:26 | NUR ---
Patient has arrived via [facility] from the ED. Patient was able to ambulate to the hospital bed with SBA and a steady gait. Patient has been placed on tele monitor, v/s completed, physical assessment completed, and all questions answered. IVF infusing per MD orders. Patient has been oriented to the room: call light within reach, BLL, SRx2. Patient has no complaints at this time, will continue to monitor.
[2019-02-17 18:00] VITALS: BP 121/85
[2019-02-17] MEDS ORDERED: CHOL500049 PO (18:24)
[2019-02-17] MEDS ORDERED: ONDA8TAB12 PO (18:28)
--- NOTE | 2019-02-17 18:40 | NUR ---
Patient in room PCU 3019. I have received report from LG Harris and had the opportunity to ask questions and assume patient care.
--- NOTE | 2019-02-17 18:48 | NUR ---
Problems reprioritized. Patient report given, questions answered & plan of care reviewed with LG Mcfarlane. Patient is sitting in bed on her cell phone. No complaints at this time.
[2019-02-17] MEDS: metoprolol tartrate 50mg tablet PO SCH (19:06)
[2019-02-17] MEDS: HYDROcodone/acetaminophen 5mg/325mg tablet PO PRN (19:06)
[2019-02-17] MEDS ORDERED: baclofen 10mg tablet PO PRN (19:55)
--- NOTE | 2019-02-17 20:00 | NUR ---
Per patient, she is no longer taking levaquin or flagyl that were reported on her med rec.
[2019-02-17] MEDS: gabapentin 400mg capsule PO SCH (20:58)
[2019-02-17] MEDS ORDERED: diphenhydrAMINE 25mg capsule PO PRN (21:00)
[2019-02-17] MEDS ORDERED: sertraline 50mg tablet PO SCH (21:00)
[2019-02-17] MEDS ORDERED: lurasidone 60mg tablet PO SCH (21:00)
[2019-02-17] MEDS ORDERED: metroNIDAZOLE 500mg tablet PO SCH (21:00)
[2019-02-17 22:00] VITALS: BP 110/63
[2019-02-18] MEDS: normal saline 1000ml 1,000 ML IV SCH ×2 (00:46→09:54)
[2019-02-18 02:00] VITALS: BP 123/84
[2019-02-18 05:32] LABS: BASOPHILS % (AUTO) 0.5 % (0-1); EOSINOPHILS # (AUTO) 0.1 X10'3 (0-0.9); EOSINOPHILS % (AUTO) 2.1 % (0-6); HEMATOCRIT 32.3 % (35.0-45.0); HEMOGLOBIN 11.2 g/dl (12.0-16.0); LYMPHOCYTES # (AUTO) 1.5 X10'3 (1.1-4.8); LYMPHOCYTES % (AUTO) 21.1 % (21-51); MEAN CORPUSCULAR HEMOGLOBIN 31.3 PG (27.0-31.0); MEAN CORPUSCULAR HGB CONC 34.7 g/dL (33.0-36.5); MEAN CORPUSCULAR VOLUME 90.3 FL (78-98); MEAN PLATELET VOLUME 9.1 FL (7.4-10.4); MONOCYTES # (AUTO) 0.4 X10'3 (0-0.9); MONOCYTES % (AUTO) 5.8 % (2-12); NEUTROPHILS % (AUTO) 70.5 % (42-75); PLATELET COUNT 161 X10'3 (140-440); RED BLOOD COUNT 3.57 X10'6 (4.20-5.60); RED CELL DISTRIBUTION WIDTH 13.5 % (11.5-14.5); WHITE BLOOD COUNT 7.2 X10'3 (4.5-11.0)
[2019-02-18 05:48] LABS: ALBUMIN 3.1 G/DL (3.4-5.0); ANION GAP 7 (8-16); BLOOD UREA NITROGEN 15 MG/DL (7-18); BUN/CREATININE RATIO 12.1 (6.6-38.0); CALCIUM 8.8 MG/DL (8.5-10.1); CHLORIDE 104 MMOL/L (99-107); CREATININE 1.24 MG/DL (0.40-0.90); GLUCOSE 86 MG/DL (70-104); POTASSIUM 4.5 MMOL/L (3.5-5.1); SODIUM 137 MMOL/L (135-145); TOTAL CARBON DIOXIDE 26.5 MMOL/L (24-32); eGFR 46 ML/MIN
[2019-02-18 06:00] VITALS: BP 106/76
--- NOTE | 2019-02-18 06:22 | NUR ---
Problems reprioritized. Patient report given, questions answered & plan of care reviewed with LG Vargas.
--- NOTE | 2019-02-18 06:44 | NUR ---
Patient in room PCU 3019. I have received report from Maeve CASTANON and had the opportunity to ask questions and assume patient care.
[2019-02-18] MEDS: metoprolol tartrate 50mg tablet PO SCH (07:48)
[2019-02-18] MEDS: gabapentin 400mg capsule PO SCH ×2 (07:49→13:17)
[2019-02-18] MEDS: HYDROcodone/acetaminophen 5mg/325mg tablet PO PRN (07:53)
[2019-02-18] MEDS ORDERED: levoFLOXACIN 500mg tablet PO SCH (08:00)
[2019-02-18] MEDS ORDERED: buproprion 150mg XL (24-hour) tablet PO SCH (08:00)
[2019-02-18] MEDS ORDERED: enoxaparin 40mg/0.4ml syringe SUBCUT SCH (08:00)
[2019-02-18 11:00] VITALS: BP 111/78
[2019-02-18] MEDS ORDERED: SPIR100T PO (13:10)
--- NOTE | 2019-02-18 14:15 | NUR ---
Discussed discharge with patient at this time, went over discharge packet, pt verbalizes understanding. IV removed, catheter intact, dressing applied. Tele monitor removed. Pt escorted to hospital lobby via wheelchair by PCT. Pt's belongings with patient. Off unit now.
== END 2019-02-18 15:32 | disposition home or self-care (01) | DRG 641 ==
LOC: ER 09:23 → ED HOLD 13:54 → PCU 3S 15:39
PROVIDERS: ADMIT Family Medicine; ATTEND Family Medicine
DX: E87.5 Hyperkalemia (principal); I12.9 Hypertensive chronic kidney disease with stage 1 through stage 4 chronic kidney disease, or unspecified chronic kidney disease; F31.9 Bipolar disorder, unspecified; K21.9 Gastro-esophageal reflux disease without esophagitis; F41.9 Anxiety disorder, unspecified; G89.29 Other chronic pain; M54.9 Dorsalgia, unspecified; N18.9 Chronic kidney disease, unspecified; Z86.711 Personal history of pulmonary embolism; Z87.442 Personal history of urinary calculi; Z59.0 Homelessness; Z88.5 Allergy status to narcotic agent; Z88.0 Allergy status to penicillin; Z88.2 Allergy status to sulfonamides; Z83.3 Family history of diabetes mellitus; Z82.49 Family history of ischemic heart disease and other diseases of the circulatory system
CPT/HCPCS: 36415; 74176; 80048; 80053; 81003; 85025; 87081; 93005; 96360; 99285; G0378; J1650; J1815; J1940; J3490; J7030; Q0163

== ENCOUNTER 2019-09-06 17:08 | Emergency (ER) | payer MEDICARE, MEDICAID ==
[~2019-09-06] VITALS: Ht 172.7 cm; Wt 94.0 kg
[~2019-09-06 17:08] MED LIST changes: +CHOL500049 PO; -LEVO500T2 PO; -METR-159 PO; -ONDA8TAB6 PO; +ONDA8TAB65 PO; -TRAM1TAB7 PO
[2019-09-06 17:41] LABS: BASOPHILS % (AUTO) 0.3 % (0-1); EOSINOPHILS % (AUTO) 0.2 % (0-6); HEMATOCRIT 37.7 % (35.0-45.0); HEMOGLOBIN 12.8 g/dl (12.0-16.0); LYMPHOCYTES # (AUTO) 0.9 X10'3 (1.1-4.8); LYMPHOCYTES % (AUTO) 7.4 % (21-51); MEAN CORPUSCULAR HEMOGLOBIN 30.5 PG (27.0-31.0); MEAN CORPUSCULAR VOLUME 89.6 FL (78-98); MEAN PLATELET VOLUME 8.4 FL (7.4-10.4); MONOCYTES # (AUTO) 0.7 X10'3 (0-0.9); MONOCYTES % (AUTO) 5.8 % (2-12); NEUTROPHILS # (AUTO) 10.2 X10'3 (1.8-7.7); NEUTROPHILS % (AUTO) 86.3 % (42-75); PLATELET COUNT 259 X10'3 (140-440); RED BLOOD COUNT 4.21 X10'6 (4.20-5.60); RED CELL DISTRIBUTION WIDTH 13.1 % (11.5-14.5); WHITE BLOOD COUNT 11.8 X10'3 (4.5-11.0)
[2019-09-06 17:56] LABS: ALANINE AMINOTRANSFERASE 22 U/L (12-78); ALBUMIN 3.7 G/DL (3.4-5.0); ALBUMIN/GLOBULIN RATIO 0.9 (1.1-1.5); ALKALINE PHOSPHATASE 42 IU/L (46-116); ANION GAP 14 (8-16); ASPARTATE AMINO TRANSFERASE 15 U/L (10-37); BILIRUBIN,TOTAL 0.4 MG/DL (0.1-1.0); BLOOD UREA NITROGEN 14 MG/DL (7-18); BUN/CREATININE RATIO 12.4 (6.6-38.0); CALCIUM 9.2 MG/DL (8.5-10.1); CHLORIDE 104 MMOL/L (99-107); CREATININE 1.13 MG/DL (0.40-0.90); GLUCOSE 129 MG/DL (70-104); LIPASE 140 U/L (73-393); POTASSIUM 3.6 MMOL/L (3.5-5.1); SODIUM 139 MMOL/L (135-145); TOTAL CARBON DIOXIDE 20.9 MMOL/L (24-32); TOTAL PROTEIN 7.9 G/DL (6.4-8.2); eGFR 51 ML/MIN
[2019-09-06 19:49] LABS: CLARITY,URINE CLEAR (Clear); COLOR,URINE YELLOW (Yellow); GLUCOSE, URINE NEGATIVE (Neg); KETONES,URINE 15 mg/dl (Neg); LEUKOCYTE ESTERASE ,URINE NEGATIVE (Neg); NITRITES, URINE NEGATIVE (Neg); OCCULT BLOOD,URINE TRACE-INTACT (Neg); PROTEIN,URINE 30 mg/dl (Neg); UROBILINOGEN,URINE 0.2 E.U/dL (0.2-1.0)
[2019-09-06 19:51] LABS: UA COLLECTION TYPE CLN CATCH MIDSTREAM
[2019-09-06 19:53] LABS: URINE HCG NEGATIVE (NEG)
[2019-09-06 19:56] LABS: BACTERIA,URINE NONE SEEN /HPF (Neg); RBC,URINE 0-2 /HPF (0-2); SQUAMOUS EPITHELIAL CELL,UR MODERATE /LPF (FEW); WBC,URINE 0-4 /HPF (0-4)
[2019-09-06 20:09] VITALS: BP 138/78
== END 2019-09-06 20:05 | disposition home or self-care (01) ==
LOC: ER 17:09
DX: K52.9 Noninfective gastroenteritis and colitis, unspecified (principal); R11.2 Nausea with vomiting, unspecified; I10 Essential (primary) hypertension; K21.9 Gastro-esophageal reflux disease without esophagitis; G89.29 Other chronic pain; F41.9 Anxiety disorder, unspecified; F31.9 Bipolar disorder, unspecified; Z86.711 Personal history of pulmonary embolism; Z98.890 Other specified postprocedural states; Z59.0 Homelessness; Z88.5 Allergy status to narcotic agent; Z88.0 Allergy status to penicillin; Z88.8 Allergy status to other drugs, medicaments and biological substances; Z79.899 Other long term (current) drug therapy
CPT/HCPCS: 36415; 80053; 81001; 81025; 83690; 85025; 99283

== ENCOUNTER 2019-09-08 06:41 | Inpatient (IN) | payer MEDICARE, MEDICAID ==
[~2019-09-08] VITALS: Ht 177.8 cm; Wt 110.0 kg
[2019-09-08] MEDS ORDERED: normal saline 1000ml 1,000 ML IV ONE ×2 (07:25→09:50)
[2019-09-08] MEDS ORDERED: iohexol 300mg/ml 100ml inj. ONE (07:28)
[2019-09-08 09:09] LABS: BASOPHILS % (AUTO) 0.4 % (0-1); EOSINOPHILS % (AUTO) 0.4 % (0-6); HEMATOCRIT 34.4 % (35.0-45.0); HEMOGLOBIN 11.9 g/dl (12.0-16.0); LYMPHOCYTES # (AUTO) 1.1 X10'3 (1.1-4.8); LYMPHOCYTES % (AUTO) 11.6 % (21-51); MEAN CORPUSCULAR HEMOGLOBIN 31.1 PG (27.0-31.0); MEAN CORPUSCULAR HGB CONC 34.5 g/dL (33.0-36.5); MEAN CORPUSCULAR VOLUME 90.2 FL (78-98); MEAN PLATELET VOLUME 8.3 FL (7.4-10.4); MONOCYTES # (AUTO) 0.7 X10'3 (0-0.9); MONOCYTES % (AUTO) 8.1 % (2-12); NEUTROPHILS # (AUTO) 7.2 X10'3 (1.8-7.7); NEUTROPHILS % (AUTO) 79.5 % (42-75); PLATELET COUNT 220 X10'3 (140-440); RED BLOOD COUNT 3.82 X10'6 (4.20-5.60); RED CELL DISTRIBUTION WIDTH 13.4 % (11.5-14.5); WHITE BLOOD COUNT 9.1 X10'3 (4.5-11.0)
[2019-09-08 09:17] LABS: ALBUMIN 3.4 G/DL (3.4-5.0); ANION GAP 10 (8-16); BLOOD UREA NITROGEN 17 MG/DL (7-18); BUN/CREATININE RATIO 14.7 (6.6-38.0); CHLORIDE 105 MMOL/L (99-107); CREATININE 1.16 MG/DL (0.40-0.90); GLUCOSE 116 MG/DL (70-104); SODIUM 140 MMOL/L (135-145); TOTAL CARBON DIOXIDE 24.6 MMOL/L (24-32); eGFR 50 ML/MIN
[2019-09-08 09:19] LABS: POTASSIUM 3.3 MMOL/L (3.5-5.1)
[2019-09-08] MEDS ORDERED: ondansetron/PF 4mg/2ml inj IV ONE (09:50)
[2019-09-08 12:20] LABS: OCCULT BLOOD STOOL POSITIVE (Neg)
[2019-09-08 12:25] LABS: C DIFF ANTIGEN POSITIVE (NEGATIVE); C DIFF SPECIMEN=DIARRHEA? ACCEPTABLE; C DIFFICILE TOXINS A&B POSITIVE (Neg)
[2019-09-08] MEDS ORDERED: SPIR100T5 PO (12:30)
[2019-09-08] MEDS ORDERED: TRAM1TAB7 PO (12:30)
[2019-09-08] MEDS ORDERED: CELE-85 PO (12:32)
[2019-09-08] MEDS ORDERED: IBUP-1986 PO (12:32)
[2019-09-08] MEDS ORDERED: ATI1T PO (12:32)
--- NOTE | 2019-09-08 12:42 | NUR ---
NITO COMPLETED MED REC
[2019-09-08] MEDS ORDERED: HYDROcodone/acetaminophen 10/325mg tab PO PRN (13:00)
[2019-09-08] MEDS ORDERED: magnesium hydroxide 30ml (MOM) UD suspension PO PRN (13:00)
[2019-09-08] MEDS ORDERED: HYDROcodone/acetaminophen 5mg/325mg tablet PO PRN (13:00)
[2019-09-08] MEDS ORDERED: LORazepam 1 MG tablet PO PRN (13:00)
[2019-09-08] MEDS ORDERED: morphine 2 MG/ML inj. syringe IV PRN (13:00)
[2019-09-08] MEDS ORDERED: acetaminophen 325mg tablet PO PRN ×2 (13:00)
[2019-09-08] MEDS ORDERED: mag hydrox/Alum hydrox/simeth 30ml oral suspension PO PRN (13:00)
[2019-09-08] MEDS ORDERED: TRAMADOL HCL PO PRN (13:10)
[2019-09-08] MEDS ORDERED: ACETAMINOPHEN PO PRN (13:10)
[2019-09-08] MEDS ORDERED: vancomycin 125mg/5ml ORAL solution 5ml UD bottle PO SCH ×2 (14:00→14:40)
[2019-09-08] MEDS: dextrose 5%-1/2 normal saline 1,000 ML IV SCH (14:05)
--- NOTE | 2019-09-08 15:09 | NUR ---
Patient in room ED 8. I have received report from LG Leblanc and had the opportunity to ask questions and assume patient care.
[2019-09-08 15:30] VITALS: BP 148/94
--- NOTE | 2019-09-08 15:33 | NUR ---
Pt arrived to surgical floor via wheelchair. Bed low and locked, call light within reach.
[2019-09-08] MEDS: gabapentin 400mg capsule PO SCH ×2 (16:00→22:12)
[2019-09-08] MEDS: morphine 2 MG/ML inj. syringe IV PRN ×2 (16:11→22:36)
--- NOTE | 2019-09-08 18:32 | NUR ---
Problems reprioritized. Patient report given, questions answered & plan of care reviewed with LG Harris.
--- NOTE | 2019-09-08 18:35 | NUR ---
Patient in room VIRGIE 352. I have received report from MARTINEZ CASTANON and had the opportunity to ask questions and assume patient care.
[2019-09-08 20:00] VITALS: BP 135/89
[2019-09-08] MEDS ORDERED: diphenhydrAMINE 25mg capsule PO SCH (21:00)
[2019-09-08] MEDS ORDERED: lurasidone 20mg tablet PO SCH (21:00)
[2019-09-08] MEDS ORDERED: sertraline 50mg tablet PO SCH (21:00)
[2019-09-08] MEDS: vancomycin 125mg/5ml ORAL solution 5ml UD bottle PO SCH (22:10)
[2019-09-08] MEDS: baclofen 10mg tablet PO SCH (22:11)
[2019-09-08] MEDS: metoprolol tartrate 50mg tablet PO SCH (22:12)
[2019-09-08] MEDS: ondansetron/PF 4mg/2ml inj IV PRN (22:33)
[2019-09-09] VITALS: BP_SYST 142; BP_SYST 149; BP_SYST 151; BP_DIAS 90; BP_DIAS 97; BP_DIAS 99
[2019-09-09] MEDS: vancomycin 125mg/5ml ORAL solution 5ml UD bottle PO SCH ×2 (02:16→07:18)
[2019-09-09] MEDS: baclofen 10mg tablet PO SCH ×2 (02:17→07:18)
[2019-09-09] MEDS: dextrose 5%-1/2 normal saline 1,000 ML IV SCH (02:17)
[2019-09-09] MEDS: ondansetron/PF 4mg/2ml inj IV PRN (05:29)
[2019-09-09] MEDS: morphine 2 MG/ML inj. syringe IV PRN (05:31)
[2019-09-09 06:19] LABS: BASOPHILS % (AUTO) 0.4 % (0-1); EOSINOPHILS # (AUTO) 0.2 X10'3 (0-0.9); EOSINOPHILS % (AUTO) 2.7 % (0-6); HEMATOCRIT 30.9 % (35.0-45.0); HEMOGLOBIN 10.5 g/dl (12.0-16.0); LYMPHOCYTES # (AUTO) 1.3 X10'3 (1.1-4.8); LYMPHOCYTES % (AUTO) 18.3 % (21-51); MEAN CORPUSCULAR HEMOGLOBIN 30.8 PG (27.0-31.0); MEAN CORPUSCULAR HGB CONC 34.1 g/dL (33.0-36.5); MEAN CORPUSCULAR VOLUME 90.5 FL (78-98); MEAN PLATELET VOLUME 8.5 FL (7.4-10.4); MONOCYTES # (AUTO) 0.6 X10'3 (0-0.9); MONOCYTES % (AUTO) 8.5 % (2-12); NEUTROPHILS # (AUTO) 5.2 X10'3 (1.8-7.7); NEUTROPHILS % (AUTO) 70.1 % (42-75); PLATELET COUNT 174 X10'3 (140-440); RED BLOOD COUNT 3.41 X10'6 (4.20-5.60); RED CELL DISTRIBUTION WIDTH 13.3 % (11.5-14.5); WHITE BLOOD COUNT 7.4 X10'3 (4.5-11.0)
--- NOTE | 2019-09-09 06:21 | NUR ---
Problems reprioritized. Patient report given, questions answered & plan of care reviewed with MARTINEZ CASTANON.
[2019-09-09 06:27] LABS: ANION GAP 11 (8-16); BLOOD UREA NITROGEN 10 MG/DL (7-18); BUN/CREATININE RATIO 10.1 (6.6-38.0); CALCIUM 7.6 MG/DL (8.5-10.1); CHLORIDE 109 MMOL/L (99-107); CREATININE 0.99 MG/DL (0.40-0.90); GLUCOSE 115 MG/DL (70-104); POTASSIUM 3.2 MMOL/L (3.5-5.1); SODIUM 142 MMOL/L (135-145); TOTAL CARBON DIOXIDE 21.8 MMOL/L (24-32); eGFR 60 ML/MIN
--- NOTE | 2019-09-09 06:29 | NUR ---
Patient in room VIRGIE 352. I have received report from LG Harris and had the opportunity to ask questions and assume patient care.
[2019-09-09 07:00] VITALS: BP 143/83
[2019-09-09] MEDS: gabapentin 400mg capsule PO SCH ×2 (07:18→12:22)
[2019-09-09] MEDS: metoprolol tartrate 50mg tablet PO SCH (07:18)
[2019-09-09] MEDS ORDERED: celeCOXIB 100mg capsule PO SCH (07:30)
[2019-09-09] MEDS ORDERED: pantoprazole 40mg Tablet.DR PO SCH (07:30)
[2019-09-09 08:00] VITALS: BP_SYST 143; BP_SYST 145; BP_DIAS 83; BP_DIAS 92; BP_DIAS 93
[2019-09-09] MEDS ORDERED: fenofibrate 145mg tablet PO SCH (08:00)
[2019-09-09] MEDS ORDERED: glycopyrrolate 1mg tablet PO SCH (08:00)
[2019-09-09] MEDS ORDERED: K and/or MAG REPLACEMENT MC SCH (08:00)
[2019-09-09] MEDS ORDERED: loratadine 10mg tablet PO SCH (08:00)
[2019-09-09] MEDS ORDERED: magnesium 4gm in 100ml NS 100 ML IV PRN (09:45)
[2019-09-09] MEDS ORDERED: potassium CL 10mEq/100ml bag 100 ML IV PRN (09:45)
[2019-09-09] MEDS ORDERED: magnesium 2GM in 50ml NS 50 ML IV PRN (09:45)
[2019-09-09] MEDS ORDERED: magnesium Cl slow-release 64mg tablet PO PRN (09:45)
[2019-09-09] MEDS ORDERED: potassium Cl 20 mEq SR tablet PO PRN ×2 (09:45)
[2019-09-09] MEDS ORDERED: VANC5VIA PO (10:14)
[2019-09-09] MEDS ORDERED: ONDA8TAB65 PO (10:14)
[2019-09-09 12:00] VITALS: BP 139/89
--- NOTE | 2019-09-09 14:00 | NUR ---
Pt discharged to home with all belongings, in private vehicle, accompanied by sister. Discharge instructions and medications reviewed. New prescriptions sent to [facility]. Pt instructed to return to ED if symptoms return. IV DC'd, cannula intact. Pt escorted to front lobby by RN.
--- NOTE | 2019-09-09 14:37 | NUR ---
External preferred pharmacy called regarding patient's new prescription transmitted for Vancomycin. Per Pharmacist, Casi, the insurance will not cover the Vanco. Vicky in case management stated she had spoken with about ordering the generic vanco called Sirvanq because it should be covered. paged regarding this. Awaiting response.
--- NOTE | 2019-09-09 14:58 | NUR ---
Spoke with and he agreed to change the medication to Sirvanq. Called pharmacy to change the prescription and Casi stated that this was not going to be covered by insurance either because it is a brand name of the medication. flight engineer manager called and she stated that she would call the pharmacy to try and see what they can do.
--- NOTE | 2019-09-09 17:04 | NUR ---
PAGER ID: [phone] MESSAGE: Emma- Surg [phone] Re: Xena please call Re: vancomycin not covered by insurance they do offer capsule
--- NOTE | 2019-09-09 17:37 | NUR ---
Vancomycin prescription converted to capsule per Dr Banda. Called to Gopal on [facility]. Pt notified.
[2019-09-09] MEDS ORDERED: buPROPion SR 150mg tablet PO SCH (20:00)
[2019-09-09] MEDS ORDERED: spironolactone 25 MG tablet PO SCH (20:00)
[2019-09-10] MEDS ORDERED: ESTRADIOL VALERATE IM SCH (13:15)
[2019-09-11] MEDS ORDERED: vitamin D (cholecalciferol) 1,000 unit tablet PO SCH (08:00)
--- NOTE | 2019-09-14 15:24 | NUR ---
Case Management DC follow up: LM/GLADYS re post DC status, questions, concerns Addendum: 09/14/19 at 1604 by Sandra Ramírez RN Case Management DC follow up: Status post: Cdiff, hematochezia. Spoke to pt via telephone, reports:"doing fine" Denies: acute/continuous cp, emergent SOB, acute general pain, resp distress, acute/emergent DÍAZ, N/V, vertigo, sycope episodes, blurry vision, weakness, abd pain, distension, bladder pain, dysuria, frequency, urgency, hematuria, unexplained bleeding, bruising,fever, hematochezia. Verbalizes understanding of s/s that would warrant -/ER visit for evaluation. Verbalizes understanding of new Rx: Vancomycin, why prescribed, resumes current Rx as ordered, denies ase r/t polypharmacy. Acknowledges need to schedule/keep follow up appts w/CHUNG/Karan 09/14/19. pt verbalizes compliant w/aftercare protocol. Needs met, questions answered at DC, no further questions r/t post status DC at this time.
== END 2019-09-09 14:00 | disposition home or self-care (01) | DRG 373 ==
LOC: ER 06:42 → ED HOLD 13:00 → SUR 3N 15:35
PROVIDERS: ADMIT Internal Medicine; ATTEND Internal Medicine
PROC: BW211ZZ Computerized Tomography (CT Scan) of Abdomen and Pelvis using Low Osmolar Contrast (ICD-10-PCS; principal; 2019-09-08)
DX: A04.72 Enterocolitis due to Clostridium difficile, not specified as recurrent (principal); D64.9 Anemia, unspecified; E78.5 Hyperlipidemia, unspecified; F31.9 Bipolar disorder, unspecified; F64.9 Gender identity disorder, unspecified; I10 Essential (primary) hypertension; F41.9 Anxiety disorder, unspecified; Z79.1 Long term (current) use of non-steroidal anti-inflammatories (NSAID); Z79.899 Other long term (current) drug therapy; Z83.3 Family history of diabetes mellitus; Z86.711 Personal history of pulmonary embolism; Z87.442 Personal history of urinary calculi; Z95.1 Presence of aortocoronary bypass graft
CPT/HCPCS: 36415; 74177; 80048; 82272; 83605; 84443; 85025; 85610; 86885; 86900; 86901; 87045; 87046; 87081; 87324; 87449; 93005; 99285; G0378; J2270; J2405; J7030; Q0163; Q9967

== ENCOUNTER 2019-09-27 10:08 | Emergency (ER) | payer MEDICARE, MEDICAID ==
[~2019-09-27] VITALS: Ht 177.8 cm; Wt 100.0 kg
[~2019-09-27 10:08] MED LIST changes: +ATI1T PO; +CELE-85 PO; -HYDR-4383 PO; +IBUP-1986 PO; -SPIR100T PO; +SPIR100T5 PO; +TRAM1TAB7 PO; +VANC5VIA PO
[2019-09-27] MEDS ORDERED: metoprolol tartrate 1mg/ml inj IV ONE (10:20)
[2019-09-27] MEDS ORDERED: proCHLORperazine 10 MG/2 ml inj IV ONE (10:20)
[2019-09-27] MEDS ORDERED: normal saline 1000ML IV soln IV ONE (10:20)
[2019-09-27 10:57] LABS: BASOPHILS % (AUTO) 0.2 % (0-1); EOSINOPHILS % (AUTO) 0.2 % (0-6); HEMATOCRIT 39.3 % (35.0-45.0); HEMOGLOBIN 13.4 g/dl (12.0-16.0); LYMPHOCYTES % (AUTO) 7.6 % (21-51); MEAN CORPUSCULAR HEMOGLOBIN 30.6 PG (27.0-31.0); MEAN CORPUSCULAR HGB CONC 33.9 g/dL (33.0-36.5); MEAN CORPUSCULAR VOLUME 90.2 FL (78-98); MEAN PLATELET VOLUME 9.1 FL (7.4-10.4); MONOCYTES # (AUTO) 0.7 X10'3 (0-0.9); MONOCYTES % (AUTO) 5.6 % (2-12); NEUTROPHILS # (AUTO) 10.8 X10'3 (1.8-7.7); NEUTROPHILS % (AUTO) 86.4 % (42-75); PLATELET COUNT 214 X10'3 (140-440); RED BLOOD COUNT 4.36 X10'6 (4.20-5.60); RED CELL DISTRIBUTION WIDTH 13.2 % (11.5-14.5); WHITE BLOOD COUNT 12.5 X10'3 (4.5-11.0)
[2019-09-27 11:14] LABS: ALANINE AMINOTRANSFERASE 22 U/L (12-78); ALBUMIN 3.9 G/DL (3.4-5.0); ALBUMIN/GLOBULIN RATIO 0.9 (1.1-1.5); ALKALINE PHOSPHATASE 44 IU/L (46-116); ANION GAP 15 (8-16); ASPARTATE AMINO TRANSFERASE 24 U/L (10-37); BILIRUBIN,TOTAL 0.3 MG/DL (0.1-1.0); BLOOD UREA NITROGEN 22 MG/DL (7-18); BUN/CREATININE RATIO 20.8 (6.6-38.0); CALCIUM 9.1 MG/DL (8.5-10.1); CHLORIDE 100 MMOL/L (99-107); CREATININE 1.06 MG/DL (0.40-0.90); GLUCOSE 150 MG/DL (70-104); LIPASE 141 U/L (73-393); SODIUM 135 MMOL/L (135-145); TOTAL CARBON DIOXIDE 20.2 MMOL/L (24-32); TOTAL PROTEIN 8.2 G/DL (6.4-8.2); eGFR 55 ML/MIN
[2019-09-27 11:18] LABS: POTASSIUM 3.8 MMOL/L (3.5-5.1)
[2019-09-27] MEDS ORDERED: iohexol 300mg/ml 100ml inj. ONE (11:50)
[2019-09-27 12:37] VITALS: BP 159/101
[2019-09-27 12:45] LABS: URINE HCG NEGATIVE (NEG)
[2019-09-27 12:49] LABS: CLARITY,URINE CLEAR (Clear); GLUCOSE, URINE NEGATIVE (Neg); KETONES,URINE TRACE mg/dl (Neg); LEUKOCYTE ESTERASE ,URINE NEGATIVE (Neg); NITRITES, URINE NEGATIVE (Neg); OCCULT BLOOD,URINE NEGATIVE (Neg); PH,URINE 5.5 (4.8-8.0); PROTEIN,URINE NEGATIVE (Neg); UROBILINOGEN,URINE 0.2 E.U/dL (0.2-1.0)
[2019-09-27 12:54] LABS: UA COLLECTION TYPE VOIDED
[2019-09-27 12:55] LABS: COLOR,URINE DARK YELLOW (Yellow)
[2019-09-27] MEDS ORDERED: ONDA4TAB12 PO (13:00)
[2019-09-27] MEDS ORDERED: PROM12.574 RC (13:00)
[2019-09-28] MEDS ORDERED: VANC250C5 PO (10:07)
== END 2019-09-27 13:36 | disposition home or self-care (01) ==
LOC: ER 10:09
DX: R10.31 Right lower quadrant pain (principal); R11.2 Nausea with vomiting, unspecified; K52.9 Noninfective gastroenteritis and colitis, unspecified; I10 Essential (primary) hypertension; K21.9 Gastro-esophageal reflux disease without esophagitis; G89.29 Other chronic pain; F41.9 Anxiety disorder, unspecified; F31.9 Bipolar disorder, unspecified; Z86.711 Personal history of pulmonary embolism; Z88.5 Allergy status to narcotic agent; Z88.0 Allergy status to penicillin; Z88.2 Allergy status to sulfonamides; Z88.8 Allergy status to other drugs, medicaments and biological substances; Z79.899 Other long term (current) drug therapy
CPT/HCPCS: 36415; 74177; 80053; 81003; 81025; 83690; 84145; 85025; 93005; 96361; 96374; 96375; 99285; J0780; J7030; Q9967; J3490

== ENCOUNTER 2019-09-28 08:31 | Emergency (ER) | payer MEDICARE, MEDICAID ==
[~2019-09-28] VITALS: Ht 177.8 cm; Wt 100.0 kg
[~2019-09-28 08:31] MED LIST changes: +ONDA4TAB12 PO; +PROM12.574 RC
[2019-09-28] MEDS ORDERED: normal saline 1000ML IV soln IV ONE (08:55)
[2019-09-28 09:24] LABS: BASOPHILS % (AUTO) 0.3 % (0-1); EOSINOPHILS % (AUTO) 0.5 % (0-6); LYMPHOCYTES # (AUTO) 0.9 X10'3 (1.1-4.8); LYMPHOCYTES % (AUTO) 9.2 % (21-51); MEAN CORPUSCULAR HEMOGLOBIN 30.1 PG (27.0-31.0); MEAN CORPUSCULAR HGB CONC 33.5 g/dL (33.0-36.5); MEAN CORPUSCULAR VOLUME 89.9 FL (78-98); MEAN PLATELET VOLUME 8.5 FL (7.4-10.4); MONOCYTES # (AUTO) 0.7 X10'3 (0-0.9); MONOCYTES % (AUTO) 7.4 % (2-12); NEUTROPHILS # (AUTO) 7.8 X10'3 (1.8-7.7); NEUTROPHILS % (AUTO) 82.6 % (42-75); PLATELET COUNT 183 X10'3 (140-440); RED CELL DISTRIBUTION WIDTH 13.1 % (11.5-14.5); WHITE BLOOD COUNT 9.4 X10'3 (4.5-11.0)
[2019-09-28 09:43] LABS: ALANINE AMINOTRANSFERASE 24 U/L (12-78); ALBUMIN 3.6 G/DL (3.4-5.0); ALKALINE PHOSPHATASE 41 IU/L (46-116); ANION GAP 13 (8-16); ASPARTATE AMINO TRANSFERASE 30 U/L (10-37); BILIRUBIN,TOTAL 0.3 MG/DL (0.1-1.0); BLOOD UREA NITROGEN 14 MG/DL (7-18); BUN/CREATININE RATIO 16.9 (6.6-38.0); CALCIUM 8.4 MG/DL (8.5-10.1); CHLORIDE 104 MMOL/L (99-107); CREATININE 0.83 MG/DL (0.40-0.90); GLUCOSE 135 MG/DL (70-104); POTASSIUM 3.2 MMOL/L (3.5-5.1); SODIUM 138 MMOL/L (135-145); TOTAL CARBON DIOXIDE 21.5 MMOL/L (24-32); TOTAL PROTEIN 7.3 G/DL (6.4-8.2); eGFR 73 ML/MIN
[2019-09-28] MEDS ORDERED: vancomycin 250MG/10ML UD oral solution 10ML BOTTLE PO STA (09:48)
[2019-09-28] MEDS ORDERED: potassium Cl 20 mEq SR tablet PO STA (09:50)
[2019-09-28] MEDS ORDERED: potassium Cl 10 mEq/100mL bag IV ONE (09:50)
[2019-09-28] MEDS ORDERED: VANCOMYCIN 125 MG/5 ML oral SOLN.RECON 5mL UD syringe (FIRVANQ) PO STA (10:02)
[2019-09-28] MEDS ORDERED: metoprolol tartrate 1mg/ml inj IV ONE (10:05)
[2019-09-28] MEDS ORDERED: VANC250C5 PO (10:07)
[2019-09-28] MEDS ORDERED: vancomycin 125mg/5ml ORAL solution 5ml UD bottle PO STA (11:20)
[2019-09-28 11:47] VITALS: BP 166/103
== END 2019-09-28 11:48 | disposition home or self-care (01) ==
LOC: ER 08:32
DX: R19.7 Diarrhea, unspecified (principal); E87.6 Hypokalemia; E86.0 Dehydration; R11.2 Nausea with vomiting, unspecified; I10 Essential (primary) hypertension; K21.9 Gastro-esophageal reflux disease without esophagitis; G89.29 Other chronic pain; F41.9 Anxiety disorder, unspecified; F31.9 Bipolar disorder, unspecified; Z86.711 Personal history of pulmonary embolism; Z86.2 Personal history of diseases of the blood and blood-forming organs and certain disorders involving the immune mechanism; Z87.442 Personal history of urinary calculi; Z98.890 Other specified postprocedural states; Z72.89 Other problems related to lifestyle; Z59.0 Homelessness; Z88.8 Allergy status to other drugs, medicaments and biological substances; Z88.2 Allergy status to sulfonamides; Z88.0 Allergy status to penicillin; Z79.899 Other long term (current) drug therapy
CPT/HCPCS: 36415; 71045; 80053; 85025; 85610; 86885; 86900; 86901; 93005; 96365; 96375; 99285; J3480; J7030; J3490

== ENCOUNTER 2021-02-23 12:38 | Emergency (ER) | payer MEDICARE, MEDICAID ==
[~2021-02-23] VITALS: Ht 177.8 cm; Wt 109.0 kg
[~2021-02-23 12:38] MED LIST changes: +AMIT-189 PO; -CELE-85 PO; -DIPH25CA46 PO; -ESTR40VI4 IM; +GABA300C PO; -GABA800T11 PO; -IBUP-1986 PO; +LURA60TA PO; -LURA60TA2 PO; -OMEP-50 PO; +ONDA-104 PO; -ONDA4TAB12 PO; -ONDA8TAB65 PO; +PANT-47 PO; -PROM12.574 RC; -SPIR100T5 PO; -VANC5VIA PO
[2021-02-23 12:47] VITALS: BP 170/97
[2021-02-23] MEDS ORDERED: CLIN300C54 PO (13:13)
[2021-02-23] MEDS ORDERED: IBUP-1986 PO (13:13)
[2021-02-23] MEDS ORDERED: bacitracin 15gm ointment TP ONE (13:15)
== END 2021-02-23 14:34 | disposition home or self-care (01) ==
LOC: ER 12:41
DX: N61.0 Mastitis without abscess (principal); R00.2 Palpitations; E87.6 Hypokalemia; E86.0 Dehydration; I10 Essential (primary) hypertension; K21.9 Gastro-esophageal reflux disease without esophagitis; G89.29 Other chronic pain; F41.9 Anxiety disorder, unspecified; F31.9 Bipolar disorder, unspecified; Z87.01 Personal history of pneumonia (recurrent); Z86.2 Personal history of diseases of the blood and blood-forming organs and certain disorders involving the immune mechanism; Z87.442 Personal history of urinary calculi; Z98.890 Other specified postprocedural states; Z95.1 Presence of aortocoronary bypass graft; Z72.89 Other problems related to lifestyle; Z59.00 Homelessness unspecified; Z88.0 Allergy status to penicillin; Z88.2 Allergy status to sulfonamides; Z88.8 Allergy status to other drugs, medicaments and biological substances; Z79.899 Other long term (current) drug therapy
CPT/HCPCS: 99283

== ENCOUNTER 2021-03-27 16:37 | Emergency (ER) | payer MEDICARE, MEDICAID ==
[~2021-03-27] VITALS: Ht 177.8 cm; Wt 102.7 kg
[~2021-03-27 16:37] MED LIST changes: +IBUP-1986 PO
[2021-03-27] MEDS ORDERED: normal saline 1000ML IV soln IV ONE (17:20)
[2021-03-27] MEDS ORDERED: acetaminophen 325mg tablet PO ONE (17:20)
[2021-03-27 17:51] LABS: BASOPHILS % (AUTO) 0.5 % (0-1); EOSINOPHILS # (AUTO) 0.2 X10'3 (0-0.9); EOSINOPHILS % (AUTO) 2.8 % (0-6); HEMATOCRIT 40.2 % (35.0-45.0); HEMOGLOBIN 13.3 g/dl (12.0-16.0); LYMPHOCYTES # (AUTO) 1.3 X10'3 (1.1-4.8); LYMPHOCYTES % (AUTO) 19.6 % (21-51); MEAN CORPUSCULAR HEMOGLOBIN 29.1 PG (27.0-31.0); MEAN CORPUSCULAR HGB CONC 33.1 g/dL (33.0-36.5); MEAN CORPUSCULAR VOLUME 87.8 FL (78-98); MEAN PLATELET VOLUME 9.3 FL (7.4-10.4); MONOCYTES # (AUTO) 0.3 X10'3 (0-0.9); NEUTROPHILS % (AUTO) 73.1 % (42-75); PLATELET COUNT 222 X10'3 (140-440); RED BLOOD COUNT 4.58 X10'6 (4.20-5.60); RED CELL DISTRIBUTION WIDTH 14.3 % (11.5-14.5); WHITE BLOOD COUNT 6.8 X10'3 (4.5-11.0)
[2021-03-27 18:03] LABS: D-DIMER < 0.19 MG/L FEU (0-0.50)
[2021-03-27 18:13] LABS: ALANINE AMINOTRANSFERASE 102 U/L (12-78); ALBUMIN 4.2 G/DL (3.4-5.0); ALKALINE PHOSPHATASE 37 IU/L (46-116); ANION GAP 12 (8-16); ASPARTATE AMINO TRANSFERASE 72 U/L (10-37); BILIRUBIN,TOTAL 0.3 MG/DL (0.1-1.0); BLOOD UREA NITROGEN 18 MG/DL (7-18); BUN/CREATININE RATIO 10.7 (6.6-38.0); CALCIUM 9.6 MG/DL (8.5-10.1); CHLORIDE 104 MMOL/L (99-107); CREATININE 1.69 MG/DL (0.40-0.90); GLUCOSE 133 MG/DL (70-104); POTASSIUM 4.3 MMOL/L (3.5-5.1); SODIUM 140 MMOL/L (135-145); TOTAL CARBON DIOXIDE 24.2 MMOL/L (24-32); TOTAL PROTEIN 8.6 G/DL (6.4-8.2); eGFR 32 ML/MIN
[2021-03-27 18:14] LABS: MAGNESIUM 1.7 MG/DL (1.5-2.4)
[2021-03-27] MEDS ORDERED: normal saline 1000ML IV soln IVB ONE (19:10)
[2021-03-28 03:33] VITALS: BP 149/106
== END 2021-03-28 03:52 | disposition home or self-care (01) ==
LOC: ER 16:38
DX: U07.1 COVID-19 (principal); R05.9 Cough, unspecified; I10 Essential (primary) hypertension; K21.9 Gastro-esophageal reflux disease without esophagitis; E11.9 Type 2 diabetes mellitus without complications; G89.29 Other chronic pain; Z79.890 Hormone replacement therapy; Z86.711 Personal history of pulmonary embolism; Z86.2 Personal history of diseases of the blood and blood-forming organs and certain disorders involving the immune mechanism; Z87.442 Personal history of urinary calculi; Z95.5 Presence of coronary angioplasty implant and graft; Z72.89 Other problems related to lifestyle; Z59.00 Homelessness unspecified; Z79.899 Other long term (current) drug therapy; Z88.8 Allergy status to other drugs, medicaments and biological substances; Z88.0 Allergy status to penicillin; Z88.2 Allergy status to sulfonamides
CPT/HCPCS: 36415; 71045; 80053; 83605; 83735; 84145; 84443; 84484; 85025; 85379; 87040; 87635; 93005; 96360; 96361; 99285; C9803; J7030

== ENCOUNTER 2021-05-09 01:14 | Emergency (ER) | payer BC, MEDICAID ==
[~2021-05-09] VITALS: Ht 177.8 cm; Wt 104.5 kg
[2021-05-09 02:10] LABS: BASOPHILS % (AUTO) 0.6 % (0-1); EOSINOPHILS # (AUTO) 0.3 X10'3 (0-0.9); EOSINOPHILS % (AUTO) 4.3 % (0-6); HEMATOCRIT 29.1 % (35.0-45.0); HEMOGLOBIN 9.8 g/dl (12.0-16.0); LYMPHOCYTES # (AUTO) 1.4 X10'3 (1.1-4.8); LYMPHOCYTES % (AUTO) 21.9 % (21-51); MEAN CORPUSCULAR HEMOGLOBIN 30.5 PG (27.0-31.0); MEAN CORPUSCULAR HGB CONC 33.6 g/dL (33.0-36.5); MEAN CORPUSCULAR VOLUME 90.8 FL (78-98); MEAN PLATELET VOLUME 8.4 FL (7.4-10.4); MONOCYTES # (AUTO) 0.4 X10'3 (0-0.9); MONOCYTES % (AUTO) 6.9 % (2-12); NEUTROPHILS # (AUTO) 4.2 X10'3 (1.8-7.7); NEUTROPHILS % (AUTO) 66.3 % (42-75); PLATELET COUNT 168 X10'3 (140-440); RED BLOOD COUNT 3.21 X10'6 (4.20-5.60); RED CELL DISTRIBUTION WIDTH 14.6 % (11.5-14.5); WHITE BLOOD COUNT 6.4 X10'3 (4.5-11.0)
[2021-05-09 02:30] LABS: ALANINE AMINOTRANSFERASE 31 U/L (12-78); ALBUMIN 2.9 G/DL (3.4-5.0); ALBUMIN/GLOBULIN RATIO 0.8 (1.1-1.5); ALKALINE PHOSPHATASE 25 IU/L (46-116); ANION GAP 13 (8-16); ASPARTATE AMINO TRANSFERASE 17 U/L (10-37); BILIRUBIN,TOTAL 0.2 MG/DL (0.1-1.0); BLOOD UREA NITROGEN 20 MG/DL (7-18); BUN/CREATININE RATIO 18.3 (6.6-38.0); CALCIUM 8.7 MG/DL (8.5-10.1); CHLORIDE 107 MMOL/L (99-107); CREATININE 1.09 MG/DL (0.40-0.90); GLUCOSE 194 MG/DL (70-104); POTASSIUM 3.6 MMOL/L (3.5-5.1); SODIUM 141 MMOL/L (135-145); TOTAL CARBON DIOXIDE 20.8 MMOL/L (24-32); TOTAL PROTEIN 6.4 G/DL (6.4-8.2); eGFR 53 ML/MIN
[2021-05-09 02:40] LABS: C-REACTIVE PROTEIN 1.32 MG/DL (0.0-0.5); ETHANOL < 0.010 GM/DL (0.0-0.010); MAGNESIUM 1.3 MG/DL (1.5-2.4)
[2021-05-09] MEDS: normal saline 1000ML IV soln IVB ONE (03:55)
[2021-05-09] MEDS: magnesium oxide 400mg tablet PO ONE (04:21)
[2021-05-09 04:33] LABS: OCCULT BLOOD STOOL NEGATIVE (Neg)
[2021-05-09 04:45] VITALS: BP 119/79
== END 2021-05-09 04:47 | disposition home or self-care (01) ==
LOC: ER 01:14
DX: S00.03XA Contusion of scalp, initial encounter (principal); R55 Syncope and collapse; E87.6 Hypokalemia; G47.30 Sleep apnea, unspecified; D50.0 Iron deficiency anemia secondary to blood loss (chronic); E83.42 Hypomagnesemia; R07.89 Other chest pain; I10 Essential (primary) hypertension; K21.9 Gastro-esophageal reflux disease without esophagitis; E11.9 Type 2 diabetes mellitus without complications; G89.29 Other chronic pain; F41.9 Anxiety disorder, unspecified; F31.9 Bipolar disorder, unspecified; Z86.711 Personal history of pulmonary embolism; Z86.2 Personal history of diseases of the blood and blood-forming organs and certain disorders involving the immune mechanism; Z98.890 Other specified postprocedural states; Z72.89 Other problems related to lifestyle; Z59.00 Homelessness unspecified; Z88.8 Allergy status to other drugs, medicaments and biological substances; Z88.0 Allergy status to penicillin; Z88.2 Allergy status to sulfonamides; Z79.899 Other long term (current) drug therapy; W19.XXXA Unspecified fall, initial encounter; Y93.89 Activity, other specified; Y92.89 Other specified places as the place of occurrence of the external cause; Y99.8 Other external cause status
CPT/HCPCS: 36415; 71045; 80053; 80320; 82272; 83735; 83880; 84484; 85025; 85651; 86140; 93005; 99285

== ENCOUNTER 2021-11-06 20:14 | Emergency (ER) | payer MEDICARE, MEDICAID ==
[~2021-11-06] VITALS: Ht 175.3 cm; Wt 101.8 kg
[2021-11-06 20:57] LABS: BASOPHILS # (AUTO) 0.1 X10'3 (0-0.2); BASOPHILS % (AUTO) 0.9 % (0-1); EOSINOPHILS # (AUTO) 0.2 X10'3 (0-0.9); HEMATOCRIT 35.1 % (35.0-45.0); HEMOGLOBIN 12.2 g/dl (12.0-16.0); LYMPHOCYTES # (AUTO) 1.8 X10'3 (1.1-4.8); LYMPHOCYTES % (AUTO) 22.8 % (21-51); MEAN CORPUSCULAR HEMOGLOBIN 29.5 PG (27.0-31.0); MEAN CORPUSCULAR HGB CONC 34.6 g/dL (33.0-36.5); MEAN CORPUSCULAR VOLUME 85.1 FL (78-98); MEAN PLATELET VOLUME 8.4 FL (7.4-10.4); MONOCYTES # (AUTO) 0.5 X10'3 (0-0.9); MONOCYTES % (AUTO) 6.4 % (2-12); NEUTROPHILS # (AUTO) 5.3 X10'3 (1.8-7.7); NEUTROPHILS % (AUTO) 66.9 % (42-75); PLATELET COUNT 190 X10'3 (140-440); RED BLOOD COUNT 4.12 X10'6 (4.20-5.60); RED CELL DISTRIBUTION WIDTH 13.8 % (11.5-14.5); WHITE BLOOD COUNT 7.9 X10'3 (4.5-11.0)
[2021-11-06 21:00] LABS: ALANINE AMINOTRANSFERASE 21 U/L (12-78); ALBUMIN 3.6 G/DL (3.4-5.0); ALBUMIN/GLOBULIN RATIO 0.9 (1.1-1.5); ALKALINE PHOSPHATASE 37 IU/L (46-116); ANION GAP 12 (8-16); ASPARTATE AMINO TRANSFERASE 14 U/L (10-37); BILIRUBIN,TOTAL 0.2 MG/DL (0.1-1.0); BLOOD UREA NITROGEN 28 MG/DL (7-18); CALCIUM 9.6 MG/DL (8.5-10.1); CHLORIDE 102 MMOL/L (99-107); CREATININE 1.47 MG/DL (0.40-0.90); GLUCOSE 148 MG/DL (70-104); POTASSIUM 4.6 MMOL/L (3.5-5.1); SODIUM 136 MMOL/L (135-145); TOTAL CARBON DIOXIDE 22.2 MMOL/L (24-32); TOTAL PROTEIN 7.4 G/DL (6.4-8.2); eGFR 37 ML/MIN
[2021-11-06 21:03] LABS: LIPASE 286 U/L (73-393)
[2021-11-06] MEDS ORDERED: acetaminophen 325mg tablet PO ONE (23:20)
[2021-11-06] MEDS ORDERED: proCHLORperazine 10 MG/2 ml inj IV ONE (23:20)
[2021-11-06] MEDS ORDERED: normal saline 1000ml 1,000 ML IV ONE ×2 (23:20→23:25)
[2021-11-07] MEDS ORDERED: PROC-8 PO (00:29)
[2021-11-07 01:23] VITALS: BP 145/90
== END 2021-11-07 01:25 | disposition home or self-care (01) ==
LOC: ER 20:14
DX: T67.5XXA Heat exhaustion, unspecified, initial encounter (principal); R11.2 Nausea with vomiting, unspecified; R07.89 Other chest pain; E11.9 Type 2 diabetes mellitus without complications; I10 Essential (primary) hypertension; K21.9 Gastro-esophageal reflux disease without esophagitis; G89.29 Other chronic pain; Z88.0 Allergy status to penicillin; Z88.2 Allergy status to sulfonamides; Z88.8 Allergy status to other drugs, medicaments and biological substances; Z59.00 Homelessness unspecified; Z86.711 Personal history of pulmonary embolism; Z86.2 Personal history of diseases of the blood and blood-forming organs and certain disorders involving the immune mechanism; Z72.89 Other problems related to lifestyle; Z87.442 Personal history of urinary calculi; X58.XXXA Exposure to other specified factors, initial encounter; Y93.89 Activity, other specified; Y92.89 Other specified places as the place of occurrence of the external cause; Y99.8 Other external cause status; Z79.899 Other long term (current) drug therapy
CPT/HCPCS: 36415; 80053; 83690; 84484; 85025; 93005; 96374; 99285; J0780; J7030

== ENCOUNTER 2021-12-12 10:31 | Emergency (ER) | payer MEDICARE, MEDICAID ==
[~2021-12-12] VITALS: Ht 177.8 cm; Wt 109.1 kg
[~2021-12-12 10:31] MED LIST changes: +PROC-8 PO
[2021-12-12 10:46] VITALS: BP 165/94
[2021-12-12 12:12] LABS: BASOPHILS # (AUTO) 0.1 X10'3 (0-0.2); BASOPHILS % (AUTO) 0.8 % (0-1); EOSINOPHILS # (AUTO) 0.2 X10'3 (0-0.9); EOSINOPHILS % (AUTO) 3.6 % (0-6); HEMATOCRIT 35.9 % (35.0-45.0); HEMOGLOBIN 11.9 g/dl (12.0-16.0); LYMPHOCYTES # (AUTO) 1.3 X10'3 (1.1-4.8); LYMPHOCYTES % (AUTO) 18.8 % (21-51); MEAN CORPUSCULAR HEMOGLOBIN 28.7 PG (27.0-31.0); MEAN CORPUSCULAR VOLUME 86.9 FL (78-98); MEAN PLATELET VOLUME 8.8 FL (7.4-10.4); MONOCYTES # (AUTO) 0.5 X10'3 (0-0.9); MONOCYTES % (AUTO) 7.6 % (2-12); NEUTROPHILS # (AUTO) 4.8 X10'3 (1.8-7.7); NEUTROPHILS % (AUTO) 69.2 % (42-75); PLATELET COUNT 219 X10'3 (140-440); RED BLOOD COUNT 4.13 X10'6 (4.20-5.60); RED CELL DISTRIBUTION WIDTH 13.7 % (11.5-14.5); WHITE BLOOD COUNT 6.9 X10'3 (4.5-11.0)
[2021-12-12 12:24] LABS: ALANINE AMINOTRANSFERASE 27 U/L (12-78); ALBUMIN 3.7 G/DL (3.4-5.0); ALKALINE PHOSPHATASE 44 IU/L (46-116); ANION GAP 10 (8-16); ASPARTATE AMINO TRANSFERASE 15 U/L (10-37); BILIRUBIN,TOTAL 0.2 MG/DL (0.1-1.0); BLOOD UREA NITROGEN 19 MG/DL (7-18); BUN/CREATININE RATIO 14.4 (6.6-38.0); CALCIUM 9.9 MG/DL (8.5-10.1); CHLORIDE 107 MMOL/L (99-107); CREATININE 1.32 MG/DL (0.40-0.90); GLUCOSE 149 MG/DL (70-104); POTASSIUM 5.7 MMOL/L (3.5-5.1); SODIUM 143 MMOL/L (135-145); TOTAL CARBON DIOXIDE 26.3 MMOL/L (24-32); TOTAL PROTEIN 7.4 G/DL (6.4-8.2); eGFR 42 ML/MIN
[2021-12-12 12:38] LABS: MAGNESIUM 1.3 MG/DL (1.5-2.4)
[2021-12-12 12:44] LABS: URINE HCG NEGATIVE (NEG)
[2021-12-12 12:47] LABS: CLARITY,URINE SLIGHTLY CLOUDY (Clear); COLOR,URINE YELLOW (Yellow); GLUCOSE, URINE NEGATIVE (Neg); KETONES,URINE NEGATIVE (Neg); LEUKOCYTE ESTERASE ,URINE NEGATIVE (Neg); NITRITES, URINE NEGATIVE (Neg); OCCULT BLOOD,URINE NEGATIVE (Neg); PROTEIN,URINE NEGATIVE (Neg); UA COLLECTION TYPE NON-SPECIFIED; UROBILINOGEN,URINE 0.2 E.U/dL (0.2-1.0)
[2021-12-12 12:52] LABS: MUCUS STRANDS MODERATE /LPF (Neg); SQUAMOUS EPITHELIAL CELL,UR MANY /LPF (FEW)
[2021-12-12 12:53] LABS: BACTERIA,URINE FEW /HPF (Neg); RBC,URINE 0-2 /HPF (0-2); WBC,URINE 0-4 /HPF (0-4)
[2021-12-12] MEDS ORDERED: PATIROMER CALCIUM SORBITEX 8.4 GM POWD.PACK PO ONE (14:10)
== END 2021-12-12 14:28 | disposition home or self-care (01) ==
LOC: ER 10:31
DX: E87.5 Hyperkalemia (principal); R53.1 Weakness; E11.42 Type 2 diabetes mellitus with diabetic polyneuropathy; I10 Essential (primary) hypertension; K21.9 Gastro-esophageal reflux disease without esophagitis; G89.29 Other chronic pain; F41.9 Anxiety disorder, unspecified; F31.9 Bipolar disorder, unspecified; Z87.01 Personal history of pneumonia (recurrent); Z86.711 Personal history of pulmonary embolism; Z86.2 Personal history of diseases of the blood and blood-forming organs and certain disorders involving the immune mechanism; Z87.442 Personal history of urinary calculi; Z98.890 Other specified postprocedural states; Z72.89 Other problems related to lifestyle; Z59.00 Homelessness unspecified; Z88.0 Allergy status to penicillin; Z88.2 Allergy status to sulfonamides; Z88.8 Allergy status to other drugs, medicaments and biological substances; Z79.899 Other long term (current) drug therapy
CPT/HCPCS: 36415; 80053; 81001; 81025; 83735; 84439; 84443; 84484; 85025; 93005; 99284

== ENCOUNTER 2022-04-11 10:31 | Observation (INO) | payer MEDICARE, MEDICAID ==
[~2022-04-11] VITALS: Ht 177.8 cm; Wt 150.0 kg
[~2022-04-11 10:31] MED LIST changes: -AMIT-189 PO; +AMIT50TA15 PO
[2022-04-11] MEDS: ondansetron/PF 4mg/2ml inj IV ONE ×2 (11:00→11:05)
[2022-04-11] MEDS: morphine 4 MG/ML inj SYRINge IV PRN ×4 (11:05→13:57)
[2022-04-11] MEDS: normal saline 1000ML IV soln IVB ONE ×2 (11:08→11:55)
[2022-04-11 11:11] LABS: BASOPHILS % (AUTO) 0.7 % (0-1); EOSINOPHILS % (AUTO) 0.2 % (0-6); HEMATOCRIT 36.3 % (35.0-45.0); HEMOGLOBIN 12.4 g/dl (12.0-16.0); LYMPHOCYTES # (AUTO) 0.9 X10'3 (1.1-4.8); MEAN CORPUSCULAR HGB CONC 34.3 g/dL (33.0-36.5); MEAN CORPUSCULAR VOLUME 84.7 FL (78-98); MEAN PLATELET VOLUME 8.2 FL (7.4-10.4); MONOCYTES # (AUTO) 0.4 X10'3 (0-0.9); MONOCYTES % (AUTO) 5.1 % (2-12); NEUTROPHILS # (AUTO) 5.9 X10'3 (1.8-7.7); PLATELET COUNT 187 X10'3 (140-440); RED BLOOD COUNT 4.29 X10'6 (4.20-5.60); RED CELL DISTRIBUTION WIDTH 13.9 % (11.5-14.5); WHITE BLOOD COUNT 7.1 X10'3 (4.5-11.0)
[2022-04-11 11:28] LABS: ANION GAP 16 (8-16); CHLORIDE 102 MMOL/L (99-107); GLUCOSE 178 MG/DL (70-104); POTASSIUM 3.5 MMOL/L (3.5-5.1); SODIUM 139 MMOL/L (135-145); TOTAL CARBON DIOXIDE 21.4 MMOL/L (24-32)
[2022-04-11 11:29] LABS: ALANINE AMINOTRANSFERASE 18 U/L (12-78); ALBUMIN 3.6 G/DL (3.4-5.0); ALBUMIN/GLOBULIN RATIO 0.9 (1.1-1.5); ALKALINE PHOSPHATASE 70 IU/L (46-116); ASPARTATE AMINO TRANSFERASE 18 U/L (10-37); BILIRUBIN,TOTAL 0.5 MG/DL (0.1-1.0); BLOOD UREA NITROGEN 9 MG/DL (7-18); BUN/CREATININE RATIO 10.3 (6.6-38.0); CREATININE 0.87 MG/DL (0.40-0.90); LIPASE 75 U/L (73-393); TOTAL PROTEIN 7.8 G/DL (6.4-8.2); eGFR 69 ML/MIN
[2022-04-11] MEDS ORDERED: ONDA8TAB13 PO ×2 (13:29)
[2022-04-11] MEDS ORDERED: proCHLORperazine 10 MG/2 ml inj IV ONE (13:55)
--- NOTE | 2022-04-11 14:54 | NUR ---
INFORMED MD THAT PT BP 200/129 ,HR 140 ,PT TAKES METOPROLOL 100 MG PO TWICE DAILY WHICH HE MISSED IT THIS AM.VERBAL ORDERS TO GIVE METOPROLOL 5 MG IV Q 15 MINS X 2 DOSES FOR HIGH BP AND HR.
[2022-04-11] MEDS ORDERED: metoprolol tartrate 1mg/ml inj IV ONE (14:55)
[2022-04-11] MEDS: metoprolol tartrate 1mg/ml inj IV SCH ×2 (14:59→15:33)
[2022-04-11] MEDS ORDERED: cloNIDine 0.1 mg tablet PO ONE (15:50)
--- NOTE | 2022-04-11 15:51 | NUR ---
Notified md Stone that pt bld pressure is still elevated after 2 nd dose of metoprol iv .As per md he will put the orders in for clonidine po and have pt f/u with pcp for high bp.
[2022-04-11] MEDS ORDERED: hydrALAZINE 20mg/ml inj. IV ONE (16:15)
[2022-04-11] MEDS ORDERED: niCARDipine-NS 40mg/200ml IVPB 200 ML IV SCH (17:00)
[2022-04-11] MEDS ORDERED: labetalol 20mg/4ml (5mg/ml) syringe IV ONE (17:45)
[2022-04-11] MEDS ORDERED: nitroGLYCERIN-Tridil 50MG/D5W 250 ML IV PRN (17:45)
--- NOTE | 2022-04-11 17:46 | NUR ---
Note jabari in ED - 04/11/22 at 1749 by NAVJOT Pt c/o hotflash feeling, w/ right hand swelling. Notified provider who ordered metoprolol drip to be stopped. Will switch to Nitro drip and
--- NOTE | 2022-04-11 17:49 | NUR ---
Pt c/o hotflash feeling, w/ right hand swelling. Notified provider who ordered metoprolol drip to be stopped. Will switch to Nitro drip and labetalol.
[2022-04-11 19:12] LABS: D-DIMER 0.33 MG/L FEU (0-0.50)
[2022-04-11] MEDS ORDERED: metoprolol tartrate 50mg tablet PO ONE (19:20)
--- NOTE | 2022-04-11 19:25 | NUR ---
Patient HR remains elevated 120s, BP still high despite nitro at 30, provider ordering additional medication for these issues.
[2022-04-11] MEDS ORDERED: potassium Cl 40MEQ/1/2NS 520ml 520 ML IV PRN (21:00)
[2022-04-11] MEDS ORDERED: magnesium 4gm in 100ml NS 100 ML IV PRN (21:00)
[2022-04-11] MEDS ORDERED: temazepam 15mg capsule PO PRN (21:00)
[2022-04-11] MEDS ORDERED: potassium Cl 20 mEq SR tablet PO PRN ×2 (21:00)
[2022-04-11] MEDS ORDERED: magnesium Cl slow-release 64mg tablet PO PRN (21:00)
[2022-04-11] MEDS ORDERED: normal saline 1000ml 1,000 ML IV SCH (21:00)
[2022-04-11] MEDS ORDERED: acetaminophen 325mg tablet PO PRN ×2 (21:00)
[2022-04-11] MEDS ORDERED: metoprolol tartrate 50mg tablet PO SCH (21:05)
[2022-04-11] MEDS: metoprolol tartrate 50mg tablet PO SCH (22:12)
--- NOTE | 2022-04-11 23:32 | NUR ---
New IV site placed to Right upper arm, patient with IV site complications to R wrist causing frequent stoppage in nitro drip. Drip now running consistently.
[2022-04-12] MEDS ORDERED: HYDROcodone/acetaminophen 10/325mg tab PO ONE (00:15)
[2022-04-12] MEDS: ondansetron/PF 4mg/2ml inj IV PRN ×2 (00:20→04:58)
[2022-04-12] MEDS: hyDRALAzine 10mg tablet PO PRN ×2 (00:37→09:34)
[2022-04-12] MEDS ORDERED: GABA300C PO (00:53)
[2022-04-12] MEDS ORDERED: FLUO-167 PO (00:53)
[2022-04-12] MEDS ORDERED: DIAZ10TA4 PO (00:53)
[2022-04-12] MEDS ORDERED: FAMO20TA8 PO (00:53)
[2022-04-12] MEDS ORDERED: METO100T14 PO (00:53)
[2022-04-12] MEDS ORDERED: ONDA-104 PO (00:53)
[2022-04-12] MEDS ORDERED: CELE-85 PO (00:53)
[2022-04-12] MEDS ORDERED: ERGO500054 PO (00:53)
[2022-04-12] MEDS ORDERED: IBUP-1986 PO (00:53)
[2022-04-12] MEDS ORDERED: HYDR-3972 PO (00:53)
[2022-04-12] MEDS ORDERED: SUCR1TAB PO (00:53)
[2022-04-12] MEDS ORDERED: METF-1203 PO (00:53)
--- NOTE | 2022-04-12 03:00 | NUR ---
Patient reports headache at this time, states doesn't feel as severe as previous migraines, states pain is bothersome, not worse of life. Patient BP is improved from earlier but is again above 160 systolic. Provider paged.
--- NOTE | 2022-04-12 03:19 | NUR ---
Patient nauseated at this time, emesis x1. Provider paged as patient already medicated with Zofran, needs second line antiemetic, wont be able to take clonodine in current state.
[2022-04-12 03:47] LABS: BASOPHILS % (AUTO) 0.3 % (0-1); EOSINOPHILS % (AUTO) 0.1 % (0-6); HEMATOCRIT 32.3 % (35.0-45.0); LYMPHOCYTES # (AUTO) 1.3 X10'3 (1.1-4.8); LYMPHOCYTES % (AUTO) 12.1 % (21-51); MEAN CORPUSCULAR HEMOGLOBIN 29.1 PG (27.0-31.0); MEAN CORPUSCULAR HGB CONC 34.1 g/dL (33.0-36.5); MEAN CORPUSCULAR VOLUME 85.4 FL (78-98); MEAN PLATELET VOLUME 8.3 FL (7.4-10.4); MONOCYTES # (AUTO) 0.8 X10'3 (0-0.9); MONOCYTES % (AUTO) 7.7 % (2-12); NEUTROPHILS # (AUTO) 8.3 X10'3 (1.8-7.7); NEUTROPHILS % (AUTO) 79.8 % (42-75); PLATELET COUNT 207 X10'3 (140-440); RED BLOOD COUNT 3.78 X10'6 (4.20-5.60); RED CELL DISTRIBUTION WIDTH 14.4 % (11.5-14.5); WHITE BLOOD COUNT 10.4 X10'3 (4.5-11.0)
[2022-04-12] MEDS: cloNIDine 0.1 mg tablet PO SCH ×4 (03:57→21:22)
[2022-04-12 04:04] LABS: ALANINE AMINOTRANSFERASE 17 U/L (12-78); ALBUMIN 3.2 G/DL (3.4-5.0); ALBUMIN/GLOBULIN RATIO 0.9 (1.1-1.5); ALKALINE PHOSPHATASE 59 IU/L (46-116); ANION GAP 14 (8-16); ASPARTATE AMINO TRANSFERASE 16 U/L (10-37); BILIRUBIN,TOTAL 0.3 MG/DL (0.1-1.0); BLOOD UREA NITROGEN 11 MG/DL (7-18); BUN/CREATININE RATIO 11.7 (6.6-38.0); CALCIUM 8.3 MG/DL (8.5-10.1); CHLORIDE 104 MMOL/L (99-107); CREATININE 0.94 MG/DL (0.40-0.90); GLUCOSE 170 MG/DL (70-104); POTASSIUM 3.5 MMOL/L (3.5-5.1); SODIUM 141 MMOL/L (135-145); TOTAL CARBON DIOXIDE 23.5 MMOL/L (24-32); TOTAL PROTEIN 6.9 G/DL (6.4-8.2); eGFR 63 ML/MIN
--- NOTE | 2022-04-12 04:34 | NUR ---
Patient BP improved, reports recurrent nausea, provider notified for no available PRN/schedueled antiemetic.
--- NOTE | 2022-04-12 04:46 | NUR ---
Provider returned call, advised giving additional Zofran.
[2022-04-12] MEDS: sucralfate 1 gm tablet PO SCH ×3 (07:30→17:50)
[2022-04-12] MEDS ORDERED: celeCOXIB 100mg capsule PO SCH (08:00)
[2022-04-12] MEDS: ondansetron 4mg rapidly disintigrating tab PO SCH ×2 (08:00→17:50)
[2022-04-12] MEDS ORDERED: famotidine 20mg tablet PO SCH (08:00)
[2022-04-12] MEDS ORDERED: heparin, porcine 5000 units/ml vial SQ SCH (08:00)
[2022-04-12] MEDS ORDERED: metoprolol tartrate 50mg tablet PO SCH (08:00)
[2022-04-12] MEDS ORDERED: amLODIPine 5mg tablet PO ONE (08:20)
--- NOTE | 2022-04-12 09:25 | NUR ---
Patient urinated into the bedside commode but patient said that he urine in the commode was mixed from the last night's urine. will reattempt collecting urine sample the next time patient urinated to ensure a clean and good sample
[2022-04-12] MEDS: pantoprazole 40mg Tablet.DR PO SCH (09:30)
[2022-04-12] MEDS: gabapentin 300mg capsule PO SCH ×3 (09:31→21:22)
[2022-04-12] MEDS: fenofibrate 145mg tablet PO SCH (09:33)
[2022-04-12] MEDS: FLUoxetine 20mg capsule PO SCH (09:34)
[2022-04-12] MEDS: metoprolol tartrate 50mg tablet PO SCH ×2 (09:35→21:44)
[2022-04-12] MEDS: HYDROcodone/acetaminophen 10/325mg tab PO PRN ×2 (09:45→17:55)
[2022-04-12 10:55] VITALS: BP 157/93
--- NOTE | 2022-04-12 10:55 | NUR ---
Patient in room ED 4. I have received report from Niya SOFTWARE RELIABILITY ENGINEER Dept and had the opportunity to ask questions and assume patient care. Pt arrived on unit, Nitro gtt @ 30mcg/min. Pt is alert and oriented x 4, denies pain, Pt has cell phone, atmospheric sciences professor, purse, and belongings in patient belongings bag.
[2022-04-12 11:07] LABS: HEMOGLOBIN A1C 5.3 % (4.5-6.2)
--- NOTE | 2022-04-12 11:10 | NUR ---
PAGER ID: [phone] MESSAGE: Xena Aldrich2, Pt was brought from ER her BP is 169/103 (120). She was given hydralazine PO 90 minutes ago and has no other BP meds PRN. Is there any med you want given? Dante [id number]
--- NOTE | 2022-04-12 11:18 | NUR ---
Problems reprioritized. Patient report given, questions answered & plan of care reviewed with Jaime CASTANON.
[2022-04-12] MEDS ORDERED: hydrALAZINE 20mg/ml inj. IV PRN (11:20)
[2022-04-12] MEDS: losartan 50mg tablet PO SCH (11:29)
--- NOTE | 2022-04-12 14:55 | NUR ---
Pt was moved to the toilet for BM. Pt found bright red blood in hat. No stool was passed but some cellular tissue was collected. Pt has no hemroids or bleeding external to the anus. Dr has been paged.
--- NOTE | 2022-04-12 14:55 | NUR ---
Message: Xena [phone], Pt has bright red blood in toilet hat no stool passed. Some cellular tissue is in hat, possibly looks like a polyp. Dante [id number]
[2022-04-12 15:39] LABS: CLARITY,URINE CLOUDY (Clear); COLOR,URINE YELLOW (Yellow); GLUCOSE, URINE NEGATIVE (Neg); KETONES,URINE NEGATIVE (Neg); LEUKOCYTE ESTERASE ,URINE NEGATIVE (Neg); NITRITES, URINE NEGATIVE (Neg); OCCULT BLOOD,URINE MODERATE (Neg); PH,URINE 6.5 (4.8-8.0); PROTEIN,URINE >=300 mg/dl (Neg); UROBILINOGEN,URINE 0.2 E.U/dL (0.2-1.0)
[2022-04-12 15:58] VITALS: BP 151/96
[2022-04-12 15:58] LABS: UA COLLECTION TYPE NON-SPECIFIED
[2022-04-12 16:02] LABS: MUCUS STRANDS MANY /LPF (Neg); SQUAMOUS EPITHELIAL CELL,UR MANY /LPF (FEW)
[2022-04-12 16:03] LABS: HYALINE CASTS 0-3 /LPF (NEGATIVE); TRANSITIONAL EPI CELLS,URINE MODERATE /HPF
[2022-04-12 16:04] LABS: BACTERIA,URINE 1+ /HPF (Neg); WBC,URINE 0-4 /HPF (0-4)
--- NOTE | 2022-04-12 19:07 | NUR ---
Patient in bed with the head of the bed elevated to semi-fowlers position. Patient i alert and oriented times 4. Patient has no signs or symptoms of distress. call light within reach and all personal belongings within reach
[2022-04-12] MEDS ORDERED: amitriptyline 50mg tablet PO SCH (21:00)
[2022-04-12] MEDS: hyDRALAzine 10mg tablet PO SCH (21:43)
--- NOTE | 2022-04-13 05:52 | NUR ---
Patient in bed with the head of the bed elevated to a semi-fowlers position. patient has no signs or symptoms of distress. Call light within reach and all personal belongings within reach.
[2022-04-13 06:00] VITALS: BP 138/82
[2022-04-13 07:09] LABS: BASOPHILS # (AUTO) 0.1 X10'3 (0-0.2); BASOPHILS % (AUTO) 0.6 % (0-1); EOSINOPHILS # (AUTO) 0.3 X10'3 (0-0.9); EOSINOPHILS % (AUTO) 2.8 % (0-6); HEMATOCRIT 29.4 % (35.0-45.0); HEMOGLOBIN 10.1 g/dl (12.0-16.0); LYMPHOCYTES # (AUTO) 1.6 X10'3 (1.1-4.8); LYMPHOCYTES % (AUTO) 17.2 % (21-51); MEAN CORPUSCULAR HEMOGLOBIN 29.4 PG (27.0-31.0); MEAN CORPUSCULAR HGB CONC 34.3 g/dL (33.0-36.5); MEAN CORPUSCULAR VOLUME 85.7 FL (78-98); MEAN PLATELET VOLUME 8.2 FL (7.4-10.4); MONOCYTES # (AUTO) 0.9 X10'3 (0-0.9); MONOCYTES % (AUTO) 10.1 % (2-12); NEUTROPHILS # (AUTO) 6.2 X10'3 (1.8-7.7); NEUTROPHILS % (AUTO) 69.3 % (42-75); PLATELET COUNT 159 X10'3 (140-440); RED BLOOD COUNT 3.43 X10'6 (4.20-5.60)
[2022-04-13] MEDS: pantoprazole 40mg Tablet.DR PO SCH (07:17)
[2022-04-13] MEDS: gabapentin 300mg capsule PO SCH ×2 (07:17→12:06)
[2022-04-13] MEDS: FLUoxetine 20mg capsule PO SCH (07:18)
[2022-04-13] MEDS: hyDRALAzine 10mg tablet PO SCH ×2 (07:18)
[2022-04-13] MEDS: metoprolol tartrate 50mg tablet PO SCH (07:18)
[2022-04-13] MEDS: cloNIDine 0.1 mg tablet PO SCH ×2 (07:19→12:06)
[2022-04-13] MEDS: losartan 50mg tablet PO SCH (07:20)
[2022-04-13] MEDS: fenofibrate 145mg tablet PO SCH (07:20)
[2022-04-13] MEDS: ondansetron 4mg rapidly disintigrating tab PO SCH ×2 (07:20)
[2022-04-13] MEDS: sucralfate 1 gm tablet PO SCH ×2 (07:20→12:06)
[2022-04-13] MEDS: HYDROcodone/acetaminophen 10/325mg tab PO PRN (07:22)
[2022-04-13 07:34] LABS: ALANINE AMINOTRANSFERASE 19 U/L (12-78); ALBUMIN 3.1 G/DL (3.4-5.0); ALBUMIN/GLOBULIN RATIO 0.9 (1.1-1.5); ALKALINE PHOSPHATASE 63 IU/L (46-116); ANION GAP 9 (8-16); ASPARTATE AMINO TRANSFERASE 16 U/L (10-37); BILIRUBIN,TOTAL 0.5 MG/DL (0.1-1.0); BLOOD UREA NITROGEN 9 MG/DL (7-18); BUN/CREATININE RATIO 10.6 (6.6-38.0); CALCIUM 7.8 MG/DL (8.5-10.1); CHLORIDE 100 MMOL/L (99-107); CREATININE 0.85 MG/DL (0.40-0.90); GLUCOSE 143 MG/DL (70-104); SODIUM 134 MMOL/L (135-145); TOTAL PROTEIN 6.7 G/DL (6.4-8.2); eGFR 71 ML/MIN
[2022-04-13 08:00] LABS: POTASSIUM 2.9 MMOL/L (3.5-5.1)
[2022-04-13] MEDS ORDERED: amLODIPine 5mg tablet PO SCH (08:00)
--- NOTE | 2022-04-13 08:02 | NUR ---
dR. Garcia PAGED "[phone] Renuka Maldonado K 2.9. Charles parker [phone]"
[2022-04-13] MEDS ORDERED: potassium Cl 40MEQ/1/2NS 520ml 520 ML IV ONE ×2 (08:30→12:30)
[2022-04-13] MEDS ORDERED: diltiazem SR 60mg capsule (twice daily) PO SCH (08:55)
[2022-04-13 09:47] LABS: MAGNESIUM 1.2 MG/DL (1.5-2.4); PHOSPHORUS 3.6 MG/DL (2.3-4.5)
[2022-04-13 10:00] VITALS: BP 115/72
[2022-04-13] MEDS ORDERED: LOSA50TA64 PO (11:45)
[2022-04-13] MEDS ORDERED: CARSR60C PO (11:45)
[2022-04-13] MEDS ORDERED: CLON0.1T2 PO (11:45)
[2022-04-13] MEDS ORDERED: POTA-206 PO (11:46)
--- NOTE | 2022-04-13 13:55 | NUR ---
pt discharged. Ivs removed. discharge packet gone over with patient
== END 2022-04-13 13:38 | disposition home or self-care (01) ==
LOC: ER 10:31 → ED HOLD 21:03 → EDBEDREQTM 21:12 → EDBEDREQ 04-12 09:08 → PCU 3S 04-12 11:42
PROVIDERS: ADMIT Internal Medicine; ATTEND Family Medicine
DX: K52.9 Noninfective gastroenteritis and colitis, unspecified (principal); I16.0 Hypertensive urgency; F41.8 Other specified anxiety disorders; G89.29 Other chronic pain; M54.9 Dorsalgia, unspecified; I10 Essential (primary) hypertension; F31.9 Bipolar disorder, unspecified; K21.9 Gastro-esophageal reflux disease without esophagitis; E11.65 Type 2 diabetes mellitus with hyperglycemia; E11.42 Type 2 diabetes mellitus with diabetic polyneuropathy; F43.10 Post-traumatic stress disorder, unspecified; Z86.16 Personal history of COVID-19; Z87.442 Personal history of urinary calculi; Z86.711 Personal history of pulmonary embolism; Z88.0 Allergy status to penicillin; Z95.1 Presence of aortocoronary bypass graft; Z79.899 Other long term (current) drug therapy
CPT/HCPCS: 36415; 71045; 80053; 81001; 82948; 83036; 83690; 83735; 84100; 84443; 85025; 85379; 87811; 93005; 93306; 96361; 96365; 96367; 96372; 96375; 96376; 99285; G0378; J0360; J0780; J1644; J2270; J2405; J3490; J7030; J8597

== ENCOUNTER 2022-04-25 16:31 | Emergency (ER) | payer MEDICARE, MEDICAID ==
[~2022-04-25] VITALS: Ht 172.7 cm; Wt 150.0 kg
[~2022-04-25 16:31] MED LIST changes: -ATI1T PO; -BUPR-94 PO; +CARSR60C PO; +CELE-85 PO; -CHOL500049 PO; +CLON0.1T2 PO; +DIAZ10TA4 PO; +ERGO500054 PO; +FAMO20TA8 PO; +FLUO-167 PO; -GLYC1TAB23 PO; +HYDR-3972 PO; +LOSA50TA64 PO; -LURA60TA PO; +METF-1203 PO; +METO100T14 PO; -METO50TA16 PO; +POTA-206 PO; -PROC-8 PO; -SERT25TA PO; +SUCR1TAB PO; -TRAM1TAB7 PO
[2022-04-25 20:05] VITALS: BP 128/86
== END 2022-04-25 20:07 | disposition home or self-care (01) ==
LOC: ER 16:32
DX: Z00.00 Encounter for general adult medical examination without abnormal findings (principal); R42 Dizziness and giddiness; I10 Essential (primary) hypertension; K21.9 Gastro-esophageal reflux disease without esophagitis; E11.9 Type 2 diabetes mellitus without complications; G89.29 Other chronic pain; M54.50 Low back pain, unspecified; Z88.5 Allergy status to narcotic agent; Z88.0 Allergy status to penicillin; Z88.2 Allergy status to sulfonamides; Z88.8 Allergy status to other drugs, medicaments and biological substances; Z59.00 Homelessness unspecified
CPT/HCPCS: 99283

== ENCOUNTER 2023-11-11 15:00 | Emergency (ER) | payer MEDICARE, MEDICAID ==
[~2023-11-11] VITALS: Ht 177.8 cm; Wt 101.3 kg
[~2023-11-11 15:00] MED LIST changes: +AMIT150T PO; -AMIT50TA15 PO; +ASPI81TA52 PO; +ATOR40TA72 PO; -BACL20TA PO; -CARSR60C PO; -CELE-85 PO; -CLON0.1T2 PO; -ERGO500054 PO; -FENO145T25 PO; -IBUP-1986 PO; +ISOS30TA84 PO; +LEUP45SY IM; +METO-384 PO; -METO100T14 PO; +MONT-47 PO; +MULT-1249 PO; +OXYC-150 PO; -POTA-206 PO; +SITA25TA3 PO; -SUCR1TAB PO; +estradiol IM
[2023-11-11 15:40] LABS: BASOPHILS # (AUTO) 0.1 X10'3 (0-0.2); BASOPHILS % (AUTO) 0.6 % (0-1); EOSINOPHILS # (AUTO) 0.3 X10'3 (0-0.9); EOSINOPHILS % (AUTO) 3.4 % (0-6); HEMATOCRIT 35.6 % (35.0-45.0); HEMOGLOBIN 11.9 g/dl (12.0-16.0); LYMPHOCYTES # (AUTO) 1.9 X10'3 (1.1-4.8); MEAN CORPUSCULAR HEMOGLOBIN 27.6 PG (27.0-31.0); MEAN CORPUSCULAR HGB CONC 33.5 g/dL (33.0-36.5); MEAN CORPUSCULAR VOLUME 82.4 FL (78-98); MEAN PLATELET VOLUME 8.5 FL (7.4-10.4); MONOCYTES # (AUTO) 0.7 X10'3 (0-0.9); MONOCYTES % (AUTO) 7.4 % (2-12); NEUTROPHILS # (AUTO) 6.4 X10'3 (1.8-7.7); NEUTROPHILS % (AUTO) 68.6 % (42-75); PLATELET COUNT 196 X10'3 (140-440); RED BLOOD COUNT 4.31 X10'6 (4.20-5.60); RED CELL DISTRIBUTION WIDTH 14.8 % (11.5-14.5); WHITE BLOOD COUNT 9.3 X10'3 (4.5-11.0)
[2023-11-11 15:46] LABS: APTT 27 SECONDS (22-32); INR 1.1 INR; PROTHROMBIN TIME 11.8 SECONDS (9.0-12.0)
[2023-11-11 15:55] LABS: ALBUMIN 3.4 G/DL (3.4-5.0); ANION GAP 11 (8-16); BLOOD UREA NITROGEN 16 MG/DL (7-18); BUN/CREATININE RATIO 12.8 (10.0-20.0); CALCIUM 8.8 MG/DL (8.5-10.1); CHLORIDE 103 MMOL/L (99-107); CREATININE 1.25 MG/DL (0.40-0.90); GLUCOSE 135 MG/DL (70-104); MAGNESIUM 1.4 MG/DL (1.5-2.4); POTASSIUM 4.3 MMOL/L (3.5-5.1); PRO BRAIN NATRIURETIC PEPTIDE 74 PG/ML (0-125); SODIUM 136 MMOL/L (135-145); TOTAL CARBON DIOXIDE 21.6 MMOL/L (24-32); eCRCL 56 ML/MIN; eGFR 45 ML/MIN
[2023-11-11] MEDS: HYDROcodone/acetaminophen 5mg/325mg tablet PO ONE (19:34)
[2023-11-11 20:12] VITALS: RESP 14; TEMP 98.5
[2023-11-11 20:13] VITALS: BP 122/67; PULSE 103; O2SAT 96
== END 2023-11-11 20:14 | disposition home or self-care (01) ==
LOC: ER 15:01
DX: R55 Syncope and collapse (principal); I10 Essential (primary) hypertension; K21.9 Gastro-esophageal reflux disease without esophagitis; F41.9 Anxiety disorder, unspecified; F32.A Depression, unspecified; Z88.5 Allergy status to narcotic agent; Z88.0 Allergy status to penicillin; Z88.2 Allergy status to sulfonamides; Z79.899 Other long term (current) drug therapy; Z79.82 Long term (current) use of aspirin; Z79.84 Long term (current) use of oral hypoglycemic drugs
CPT/HCPCS: 36415; 70450; 71045; 72125; 80048; 83735; 83880; 84484; 85025; 85610; 85730; 93005; 99285

== ENCOUNTER 2023-12-30 09:39 | Outpatient (CLI) | payer MEDICARE, MEDICAID ==
[2023-12-30] VITALS (21 sets, daily range): BP systolic 108–143; BP diastolic 52–93; PULSE 86–106
== END 2023-12-30 23:59 | disposition home or self-care (01) ==
LOC: CARD DIAG 09:39
PROVIDERS: ATTEND Internal Medicine Interventional Cardiology
DX: R55 Syncope and collapse (principal)
CPT/HCPCS: 93660

== ENCOUNTER 2025-01-12 16:09 | Emergency (ER) | payer MEDICARE, MEDICAID ==
[~2025-01-12] VITALS: Ht 177.8 cm; Wt 90.5 kg
[~2025-01-12 16:09] MED LIST changes: -AMIT150T PO; +AMIT150T35 PO
--- NOTE | 2025-01-12 16:22 | ELECTROCARDIOGRAPH REPORT ---
[facility] Test Date: 2025-01-12 Test Time: 16:19:57 Pat Name: LIZBETH POSADA Department: EMERGENCY ROOM Patient ID: [facility]-[id number] Room: Gender: F Administrative Nursing Supervisor: : 1970 Requested By: CAREY DOWLING Order Number: [id number] Reading MD: Dr. JEFFERY Chowdary Measurements Intervals [place] Rate: 80 P: 51 NE: 187 QRS: -2 QRSD: 102 T: 14 QT: 373 QTc: 431 Interpretive Statements Sinus rhythm Left ventricular hypertrophy Baseline wander in lead(s) II,aVF,V4,V5,V6 Electronically Signed On 01-14-2025 18:02:[address] JEFFERY Chowdary Please click the below link to view image of tracing.
--- NOTE | 2025-01-12 16:24 | Physician Documentation ---
History of Present Illness ~ Chief Complaint: Hypotension Stated Complaint: WEAKNESS Time Seen by MD: 16:13 Primary Medical Doctor: Meg Mathew [facility] 54-year-old female since to the ED with a complaint of dizziness and hypotension for one day. Patient states that they take metoprolol and the blood pressure got down to 99 systolic today. Denies shortness a breath but does report dizziness when standing up and ambulate He had pressure currently with a normal limits at 114 systolic EMS indicated a 10 point drop during orthostatic vitals Day of Onset: Jan 12, 2025 Medication Reconciliation Allergies: Coded Allergies: hydromorphone (Verified Allergy, Mild, 01/12/25) PATIENT BECOMES ITCHY DOWN ARMS Penicillins (Verified Allergy, Unknown, 01/12/25) Sulfa (Sulfonamide Antibiotics) (Unverified Allergy, Unknown, 01/12/25) methadone (Verified Allergy, Unknown, 01/12/25) nicardipine (Verified Allergy, Unknown, 01/12/25) Errythema at infusion site proximally up the arm. pregabalin (Unverified Allergy, Unknown, 01/12/25) Scheduled Amitriptyline HCl (Amitriptyline HCl), 1 TAB PO HS, (Reported) Aspirin (Aspirin EC), 1 TAB PO DAILY, (Reported) Atorvastatin Calcium (Atorvastatin Calcium), 1 TAB PO DAILY, (Reported) Famotidine (Famotidine), 1 TAB PO BID, (Reported) Fluoxetine HCl (Fluoxetine HCl), 40 MG PO QAM, (Reported) Gabapentin (Neurontin), 2 CAP PO TID, (Reported) Isosorbide Mononitrate (Isosorbide Mononitrate Er), 1 TAB PO QAM, (Reported) Leuprolide Acetate (Lupron Depot), 45 MG IM Q6M, (Reported) Loratadine (Loratadine), 1 TAB PO DAILY, (Reported) Losartan Potassium (Losartan Potassium), 1 TAB PO DAILY, (Reported) Metformin HCl (Metformin HCl), 2 TAB PO BIDBD, (Reported) Metoprolol Succinate (Metoprolol Succinate), 1 TAB PO BID, (Reported) Montelukast Sodium (Singulair), 1 TAB PO DAILY, (Reported) Multivitamin (Multivitamin), 1 TAB PO DAILY, (Reported) Ondansetron HCl (Ondansetron HCl), 1 TAB PO Q8H, (Reported) Pantoprazole Sodium (PROTONIX tablet), 1 TAB PO QAM@0730, (Reported) Sitagliptin Phosphate* (Januvia*), 1 TAB PO DAILY, (Reported) [estradiol], 0.4 ML IM Q7D, (Reported) Scheduled PRN Diazepam (Diazepam), 1 TAB PO BID PRN for anxiety, (Reported) Hydrocodone Bit/Acetaminophen (Hydrocodon-Acetaminophn 10-325 tablet), 1 TAB PO TID PRN for pain, (Reported) Oxycodone HCl/Acetaminophen (Percocet 10-325 mg Tablet), 1 TAB PO QID PRN PRN for pain, (Reported) Past Medical History Past Medical History: Peripheral Neuropathy, Arrhythmia, Hypertension, Pneumonia, Pulmonary Embolism, *GI/HEPATOBILIARY*, GERD, Anemia, Kidney Stones, Diabetes, Chronic Pain, Chronic Back Pain, Osteoarthritis, C-Diff, *PSYCH*, Anxiety, Bipolar, Depression Past Surgical History: orthopedic surgeries Patient History: (CABG) Coronary artery bypass grafting FATHER (62) (Cancer) Malignant carcinoid tumor FATHER (71) (DM Type 2) Diabetes mellitus type 2 MOTHER (30) GRANDFATHER OR GRANDMOTHER ([place]) Myocardial infarction MOTHER (62) GRANDFATHER OR GRANDMOTHER Alcohol Use: Sober Drug Use: none Lives with: Other Lives In: Homeless Occupation: disabled Review of Systems All Other Systems at this time: Reviewed and Negative ROS As stated above in the HPI, otherwise all systems are reviewed and negative. Physical Exam Vital Signs: Heart Rate: 84, Respiratory Rate: 16, BP: 114/76, Pulse Oximetry: 99, Weight: 90.450 Oxygen Flow Rate: 0 Physical Exam General: Alert, no apparent distress. HEENT: PERRL, EOMI, no injection, moist mucous membranes. Neck: Full range of motion. Respiratory: Lungs clear, no respiratory distress. Chest: No accessory muscle use. Cardiovascular: Regular rate and rhythm, no murmurs. Gastrointestinal: Soft, nontender, nondistended. Bowels sounds present. Extremities: Normal range of motion, no deformity. Neurologic: Oriented x4. Psychiatric: Normal mood and affect. Skin: Normal color, warm and dry. No edema, no ecchymosis. Progress Results/Orders Results/Orders Orders - NITESH,AB H [employer]ARLY CHILDH[employer]OD TE[employer]ER Chest,Single View (01/12/25 16:41) Monitor (01/12/25 16:20) Saline Lock (01/12/25 16:20) Oxygen (01/12/25 16:20) Hs Troponin I W Calculations (01/12/25 18:20) Hs Troponin I W Calculations (01/12/25 19:20) * Orthostatic Vitals* Q12H (01/12/25 16:21) * Orthostatic Vitals* Q12H (01/12/25 16:27) Completed Orders - AB DOWLING [employer]AR[employer] CHILDH[employer]OD TE[employer]ER Chest,Single View (01/12/25 16:41) Cbc/Diff (01/12/25 16:20) BMP (01/12/25 16:20) PBNP (01/12/25 16:20) Electrocardiogram (01/12/25 16:20) Hs Troponin I W Calculations (01/12/25 16:20) Ua W/Microscopic, Cult If Ind (01/12/25 17:49) Normal Saline 1000ml (0.9% Sodium Chlori (01/12/25 18:10) Vital Signs 01/12/25 01/12/25 01/12/25 01/12/25 16:13 16:17 16:17 16:30 Pulse 84 82 81 81 84 Resp 16 16 16 B/P (MAP) 114/76 114/76 (89) 110/70 102/55 89/49 Pulse Ox 99 98 O2 Flow Rate 0 0 Laboratory Tests Test 01/12/25 16:37 01/12/25 17:49 White Blood Count 7.4 Red Blood Count 4.52 Hemoglobin 11.9 L Hematocrit 35.6 Mean Corpuscular Volume 78.9 Mean Corpuscular Hemoglobin 26.2 L Mean Corpuscular Hemoglobin Concent 33.3 Red Cell Distribution Width 16.3 H Platelet Count 193 Mean Platelet Volume 9.0 Neutrophils (%) (Auto) 61.9 Lymphocytes (%) (Auto) 25.6 Monocytes (%) (Auto) 6.7 Eosinophils (%) (Auto) 5.0 Basophils (%) (Auto) 0.8 Neutrophils # (Auto) 4.6 Lymphocytes # (Auto) 1.9 Monocytes # (Auto) 0.5 Eosinophils # (Auto) 0.4 Basophils # (Auto) 0.1 CBC Comment Sodium Level 135 Potassium Level 4.4 Chloride Level 105 Carbon Dioxide Level 19.2 L Anion Gap 11 Blood Urea Nitrogen 14 Creatinine 0.86 Estimated GFR/1.73 m2 69 BUN/Creatinine Ratio 16.3 Glucose Level 189 H Calcium Level 8.6 Troponin I High Sensitivity < 4 L Troponin I High Sens Percent Delta Troponin I Hi Sens Absolute Change Pro-B-Type Natriuretic Peptide 271 H Albumin 3.0 L Chemistry Comments Urine Specimen Description Cln catch midstream Urine Color Straw Urine Clarity Clear Urine pH 6.5 Urine Specific Dr[place] <=1.005 Urine Protein Negative Urine Glucose (UA) Negative Urine Ketones Negative Urine Occult Blood Trace-intact Urine Nitrite Negative Urine Bilirubin Negative Urine Urobilinogen 0.2 Urine Leukocyte Esterase Negative Urine RBC 0-2 Urine WBC 0-4 Urine Squamous Epithelial Cells None seen Urine Bacteria None seen Urine Mucus None seen Urine Culture Indicated Not ind Volume Urine Centrifuged 10 ml Urine Comment Medical Decision Making Additional information obtaine: old records Findings This patient presented with concerns over possible urinary tract in infection secondary to recent infection where they required hospitalization. Urinalysis came back negative no white count. I did provide the patient with a fluid bolus and advised him to hold there metoprolol Differential Dx:Considerations: Include: anemia, CVA, dehydration, dysrhythmia, electrolyte imbalance, encephalopathy, Guillain-[place], hypoglycemia, hypotension, hypovolemia, labyrinthitis, Meniere's disease, myasathenia gravis, myocardial infarction, pulmonary embolus, renal failure, respiratory failure, TIA, VBI, vertigo central, vertigo peripheral, vestibular neuronitis, other Departure Disposition: 01 HOME / SELF CARE / HOMELESS Impression: Primary Impression: Hypotension Condition: Stable Discharge Instructions: Orthostatic Hypotension Referrals: NO PRIMARY CARE PROVIDER (PCP) Signature Scribe Signature: j Attestation: Scribed for Ab Dowling Np by Ab Vaughan NP . 01/12/25 16:24 AB DOWLING NP Jan 12, 2025 16:24
[2025-01-12 16:55] LABS: MEAN PLATELET VOLUME 9.0 FL (7.4-10.4); RED CELL DISTRIBUTION WIDTH 16.3 % (11.5-14.5)
--- NOTE | 2025-01-12 17:00 | RADIOLOGY REPORT ---
CHEST RADIOGRAPH Indication: CP Technique: Single frontal view of the chest was obtained Comparison: DI CHEST,SINGLE VIEW on DOS: 11/11/23, CHEST,SINGLE VIEW on DOS: 04/11/22, CHEST,SINGLE VIEW on DOS: 05/09/21 FINDINGS: Lines and Tubes: None Lungs: No focal consolidation. Pleura: No effusion. No pneumothorax. Cardiomediastinal contours: Unremarkable. Cardiac loop recorder is noted over the left lower lung zone. Bones: No acute osseous abnormality. Spinal stimulator wires partially visualized. Additional nerve stimulator is noted extending cephalad over the neck. IMPRESSION: No acute cardiopulmonary disease.
[2025-01-12 17:13] LABS: CREATININE 0.86 MG/DL (0.40-0.90); PRO BRAIN NATRIURETIC PEPTIDE 271 PG/ML (0-125); TOTAL CARBON DIOXIDE 19.2 MMOL/L (24-32); eCRCL 81 ML/MIN; eGFR 69 ML/MIN
[2025-01-12 18:01] LABS: LEUKOCYTE ESTERASE ,URINE NEGATIVE (Neg); NITRITES, URINE NEGATIVE (Neg); OCCULT BLOOD,URINE TRACE-INTACT (Neg)
[2025-01-12 18:06] LABS: UA COLLECTION TYPE CLN CATCH MIDSTREAM
[2025-01-12 18:07] LABS: MUCUS STRANDS NONE SEEN /LPF (Neg); SQUAMOUS EPITHELIAL CELL,UR NONE SEEN /LPF (FEW)
[2025-01-12] MEDS: normal saline 1000ML IV soln IVB ONE (18:56)
[2025-01-12 19:58] VITALS: BP 131/81; PULSE 83; RESP 16; O2SAT 98
== END 2025-01-12 20:06 | disposition home or self-care (01) ==
LOC: ER 16:10
DX: I95.9 Hypotension, unspecified (principal); R06.02 Shortness of breath; E11.42 Type 2 diabetes mellitus with diabetic polyneuropathy; K21.9 Gastro-esophageal reflux disease without esophagitis; F41.9 Anxiety disorder, unspecified; F31.9 Bipolar disorder, unspecified; I10 Essential (primary) hypertension; M19.90 Unspecified osteoarthritis, unspecified site; Z88.0 Allergy status to penicillin; Z88.2 Allergy status to sulfonamides; Z88.5 Allergy status to narcotic agent; Z88.8 Allergy status to other drugs, medicaments and biological substances; Z95.1 Presence of aortocoronary bypass graft
CPT/HCPCS: 36415; 71045; 80048; 81001; 83880; 84484; 85025; 93005; 96360; 99285; A6258; J7030